=== PATIENT | female | born 1935 | race Caucasian/White ===

== ENCOUNTER 2017-02-09 15:52 | Inpatient (IN) | payer OTHER, MEDICARE ==
[~2017-02-09] VITALS: Ht 152.4 cm; Wt 79.2 kg
[~2017-02-09 15:52] MED LIST: ASPI325T PO; BUTA1CAP PO; CARD120T4 PO; LEVO.1 PO; MECL25 PO; ZOCO40TA PO
[2017-02-09 15:55] VITALS: BP 157/74; PULSE 95; RESP 16; TEMP 98.2; O2SAT 99
[2017-02-09 16:17] VITALS: BP 155/91; PULSE 85; RESP 18; O2SAT 99
[2017-02-09 16:29] VITALS: RESP 16; O2SAT 96
[2017-02-09] MEDS ORDERED: SODIUM CHLORIDE 0.9% FLUSH 10 ML FLUSH IVF PRN (16:30)
--- NOTE | 2017-02-09 16:30 | PD ---
HPI Chief Complaint: Neuro Symptoms/ Deficits Time Seen by Provider: 16:27 Travel History International Travel<30 days: No Contact w/Intl Traveler<30days: No Traveled to known affect area: No History of Present Illness HPI Patient comes in for evaluation of left upper and left lower extremity weakness that began around 8:00 this morning. Patient states she noticed it on her way to the airport in [place] has not seen improvement. Patient's daughter was with her does not live with her and has not noticed anything else abnormal. Patient having difficulty walking with her left leg and grasping with her left hand. Daughter thought this could be secondary to patient needing something to eat so tried to get her to eat something prior to coming to the emergency department with no improvement of symptoms. Patient denies any chest pain, shortness of breath, headache, back pain, change in vision, dizziness, lightheadedness, abdominal pain, loss change in bowel or bladder, or recent trauma. Patient states 2 days ago she did trip secondary to her leg giving out on her but did not actually fall states that she was caught prior to landing. Patient denies any history of CVA or TIA. Patient reports the patient was supposed to be getting a MRI of her back in [place]. Daughter states she is trying to get in contact with her sister in [place] to get more information the patient's current issue. PFSH Past Medical History Hx Anticoagulant Therapy: Yes (ASA 325 MG) Arthritis: Yes Asthma: No Atrial Fibrillation: Yes Autoimmune Disease: No Blood Disorders: No Anxiety: No Depression: Yes Heart Rhythm Problems: Yes Cancer: No Cardiac Catheterization: No Cardiovascular Problems: Yes (A-FIB, HTN, HYPERCHOLESTEROLEMIA) High Cholesterol: Yes Chemotherapy: No Chest Pain: Yes Congestive Heart Failure: No COPD: No Cerebrovascular Accident: No Diabetes: No Diminished Hearing: Yes Endocrine: Yes Gastrointestinal Disorders: Yes (GERD) GERD: Yes Glaucoma: No Genitourinary: Yes (HEMATURIA) Headaches: Yes Hepatitis: No Hiatal Hernia: Yes Hypertension: Yes Immune Disorder: No Kidney Stones: No Musculoskeletal: Yes Neurologic: Yes Psychiatric: No Reproductive: No Respiratory: No Immunizations Current: Yes Migraines: No Myocardial Infarction: No Radiation Therapy: No Renal Failure: No Seizures: No Sickle Cell Disease: No Sleep Apnea: No Thyroid Disease: Yes (HYPOTHYROIDISM) Ulcer: No Menopausal: Yes : 5 Para: 5 Past Surgical History Abdominal Surgery: No AICD: No Appendectomy: No Arteriovenous Shunt: No Cardiac Surgery: No Cholecystectomy: No Coronary Artery Bypass Graft: No Ear Surgery: No Endocrine Surgery: No Eye Surgery: Yes (BILATERAL CATARACTS) Genitourinary Surgery: No Gynecologic Surgery: Yes Hysterectomy: Yes Insulin Pump: No Joint Replacement: Yes (LEFT ANKLE FRACTURE WITH REPAIR) Oral Surgery: No Pacemaker: No Thoracic Surgery: No Other Surgery: Yes (STOMACH FLU-HOSPTIALIZED 10/29/08) Family History Family Myocardial Infarction: Yes Social History Alcohol Use: No Tobacco Use: No Substance Use: No Allergies-Medications (Allergen,Severity, Reaction): Coded Allergies: codeine (Unverified Adverse Reaction, Intermediate, Nausea/Vomiting, ) Reported Meds & Prescriptions Reported Meds & Active Scripts Active Reported Atorvastatin (Atorvastatin Calcium) 20 Mg Tab 20 Mg PO HS Losartan-Hydrochlorothiazide 50-12.5 Mg Tab 1 Tab PO DAILY Baclofen 10 Mg Tab 10 Mg PO HS PRN Digoxin 0.125 Mg/2.5 Ml Solution Aspirin 325 Mg Tab 325 Mg PO DAILY Levothyroxine (Levothyroxine Sodium) 100 Mcg Tab 100 Mcg PO DAILY Escitalopram (Escitalopram Oxalate) 10 Mg Tab 10 Mg PO DAILY Celecoxib 100 Mg Cap 100 Mg PO BID Omeprazole 20 Mg Tab 20 Mg PO DAILY Bee 3 1000 mg (Bee-3 Fatty Acids) 1 Cap Cap 1,000 Mg PO DAILY Potassium Chloride ER (Potassium Chloride) 20 Meq Tab 100 Meq PO DAILY Review of Systems Except as stated in HPI: all other systems reviewed are Neg Physical Exam Narrative GENERAL: Well-developed, overly nourished, in no acute distress, and non-ill appearing. SKIN: Focused skin assessment warm and dry. HEAD: Atraumatic. Normocephalic. EYES: Pupils equal and round. EOMI. No scleral icterus. No injection or drainage. ENT: No nasal bleeding or discharge. Mucous membranes pink and moist. NECK: Trachea midline. No JVD. Supple. No nuclear rigidity. CARDIOVASCULAR: Regular rate and rhythm. No murmur appreciated. RESPIRATORY: No accessory muscle use. No respiratory distress. Clear to auscultation. Breath sounds equal bilaterally. GASTROINTESTINAL: Abdomen soft, non-tender, nondistended, and no guarding. Hepatic and splenic margins not palpable. Normal bowel sounds 4. No pulsatile mass. MUSCULOSKELETAL: No obvious deformities. No clubbing. No cyanosis. No edema. Decreased range of motion left upper and left lower extremities. NEUROLOGICAL: Awake and alert. No obvious cranial nerve deficits. Motor grossly within normal limits. Normal speech. No facial drooping. No deviation of the tongue. Equal rise and fall of the eyebrows. Patient has decreased strength left lower and upper extremities with electrician front, pronator drift, lifting left leg, and left and left arm. Patient reports sensation is intact equally bilateral upper and lower extremities to light touch. PSYCHIATRIC: Appropriate mood and affect; insight and judgment normal. Data Data Last Documented VS Vital Signs Date Time Temp Pulse Resp B/P Pulse Ox O2 Delivery O2 Flow Rate FiO2 02/09/17 16:29 16 96 Room Air 02/09/17 16:17 85 155/91 02/09/17 15:55 98.2 Orders Electrocardiogram (02/09/17 16:24) Prothrombin Time / Inr (Pt) (02/09/17 16:24) Act Partial Throm Time (Ptt) (02/09/17 16:24) Complete Blood Count With Diff (02/09/17 16:24) Basic Metabolic Panel (Bmp) (02/09/17 16:24) Urinalysis - C+S If Indicated (02/09/17 16:24) Ct Brain W/O Iv Contrast(Rout) (02/09/17 16:24) Ecg Monitoring (02/09/17 16:24) Iv Access Insert/Monitor (02/09/17 16:24) Oximetry (02/09/17 16:24) Sodium Chloride 0.9% Flush (Ns Flush) (02/09/17 16:30) Admit Order (Ed Use Only) (02/09/17 18:39) Labs Laboratory Tests Test 02/09/17 02/09/17 02/09/17 16:24 16:30 17:43 Prothrombin Time 10.7 SEC Prothromb Time International 1.0 RATIO Ratio Activated Partial 24.3 SEC Thromboplast Time White Blood Count 13.0 TH/MM3 Red Blood Count 4.00 MIL/MM3 Hemoglobin 11.9 GM/DL Hematocrit 37.1 % Mean Corpuscular Volume 92.8 FL Mean Corpuscular Hemoglobin 29.9 PG Mean Corpuscular Hemoglobin 32.2 % Concent Red Cell Distribution Width 15.3 % Platelet Count 330 TH/MM3 Mean Platelet Volume 8.6 FL Neutrophils (%) (Auto) 73.5 % Lymphocytes (%) (Auto) 18.6 % Monocytes (%) (Auto) 5.7 % Eosinophils (%) (Auto) 1.8 % Basophils (%) (Auto) 0.4 % Neutrophils # (Auto) 9.6 TH/MM3 Lymphocytes # (Auto) 2.4 TH/MM3 Monocytes # (Auto) 0.7 TH/MM3 Eosinophils # (Auto) 0.2 TH/MM3 Basophils # (Auto) 0.1 TH/MM3 CBC Comment DIFF FINAL Differential Comment Sodium Level 139 MEQ/L Potassium Level 3.6 MEQ/L Chloride Level 102 MEQ/L Carbon Dioxide Level 24.2 MEQ/L Anion Gap 13 MEQ/L Blood Urea Nitrogen 25 MG/DL Creatinine 1.35 MG/DL Estimat Glomerular Filtration 37 ML/MIN Rate Random Glucose 164 MG/DL Calcium Level 8.1 MG/DL Urine Color YELLOW Urine Turbidity HAZY Urine pH 5.0 Urine Specific [place] 1.030 Urine Protein TRACE mg/dL Urine Glucose (UA) NEG mg/dL Urine Ketones NEG mg/dL Urine Occult Blood NEG Urine Nitrite NEG Urine Bilirubin NEG Urine Urobilinogen 2.0 MG/DL Urine Leukocyte Esterase LARGE Urine WBC 5 /hpf Urine Squamous Epithelial 8 /hpf Cells Urine Transitional Epithelial <1 /hpf Cells Urine Hyaline Casts 3 /lpf Urine Mucus FEW /lpf Microscopic Urinalysis Comment CATH-CULT NOT IND MDM Medical Decision Making Medical Screen Exam Complete: Yes Emergency Medical Condition: Yes Interpretation(s) CT the head read by the radiologist shows: Stable appearance with small vessel ischemic change. Differential Diagnosis CVA, TIA, tumor, electrolyte abnormality, intracranial hemorrhage, other Narrative Course Patient was seen and examined. IV established. Patient placed on continuous cardiac monitoring. Initial lab and radiological studies were ordered. Discussed patient with Dr. Yan, who saw and evaluated patient is gardner with plan of care and disposition. Patient took full dose aspirin this morning and reports is unable take Coumadin secondary to bleeding. Discussed all findings and plan of care with patient and her daughter. Patient is agreeable for admission. All questions were answered. Discussed patient with hospitalist is agreeable to admit the patient. Physician Communication Physician Communication [phone] Kenney, who is agreeable to admit the patient. Diagnosis Primary Impression: CVA (cerebral vascular accident) Qualified Code: I63.9 - Cerebrovascular accident (CVA), unspecified mechanism Admitting Information Admitting Physician Requests: Admit Condition: Stable Flip Cristobal Feb 09, 2017 16:30
[2017-02-09 16:59] LABS: AUTOMATED NEUTROPHIL # 9.6 TH/MM3 (1.8-7.7); BASOPHIL # 0.1 TH/MM3 (0-0.2); BASOPHIL % 0.4 % (0.0-2.0); EOSINOPHIL # 0.2 TH/MM3 (0-0.4); EOSINOPHIL % 1.8 % (0.0-4.0); HEMATOCRIT 37.1 % (35.0-46.0); HEMO FLAGS DIFF FINAL; LYMPH % 18.6 % (9.0-44.0); LYMPHOCYTE # 2.4 TH/MM3 (1.0-4.8); MEAN CELL VOLUME 92.8 FL (80.0-100.0); MEAN CORPUSCULAR HEMOGLOBIN 29.9 PG (27.0-34.0); MEAN CORPUSCULAR HGB CONC 32.2 % (32.0-36.0); MONO % 5.7 % (0.0-8.0); NEUT % 73.5 % (16.0-70.0); PLATELET COUNT 330 TH/MM3 (150-450); RED CELL DISTRIBUTION WIDTH 15.3 % (11.6-17.2)
[2017-02-09 17:02] LABS: APTT (PATIENT) 24.3 SEC (24.3-30.1); PROTHROMBIN TIME - PATIENT 10.7 SEC (9.8-11.6)
--- NOTE | 2017-02-09 17:09 | RADRPT ---
EXAM DATE/TIME: 02/09/2017 16:50 [facility] COMPARISON: CT BRAIN W/O CONTRAST, January 26, 2015, 8:36. INDICATIONS : Left arm and left leg numbness today. RADIATION DOSE: 56.77 CTDIvol (mGy) MEDICAL HISTORY : Hypertension. Cardiovascular disease AFIB SURGICAL HISTORY : Hysterectomy. ENCOUNTER: Initial ACUITY: 1 day PAIN SCALE: 3/10 LOCATION: Bilateral cranial TECHNIQUE: Multiple contiguous axial images were obtained of the head. Using automated exposure control and adj ustment of the mA and/or kV according to patient size, radiation dose was kept as low as reasonably a chievable to obtain optimal diagnostic quality images. DICOM format image data is available electro nically for review and comparison. FINDINGS: CEREBRUM: The ventricles are normal for age. No evidence of midline shift, mass lesion, hemorrhage or acute in farction. Stable chronic small vessel ischemic changes are noted with decreased attenuation in the wh ite matter. No extra-axial fluid collections are seen. POSTERIOR FOSSA: The cerebellum and brainstem are intact. The 4th ventricle is midline. The cerebellopontine angle i s unremarkable. EXTRACRANIAL: The visualized portion of the orbits is intact. SKULL: The calvaria is intact. No evidence of skull fracture. CONCLUSION: Stable appearance with small vessel ischemic change. Raghavendra Joseph MD on February 09, 2017 at 17:06 Board Certified Radiologist. This report was verified electronically.
--- NOTE | 2017-02-09 17:15 | PD ---
Data Data Last Documented VS Vital Signs Date Time Temp Pulse Resp B/P Pulse Ox O2 Delivery O2 Flow Rate FiO2 02/09/17 16:29 16 96 Room Air 02/09/17 16:17 85 155/91 02/09/17 15:55 98.2 Orders Electrocardiogram (02/09/17 16:24) Prothrombin Time / Inr (Pt) (02/09/17 16:24) Act Partial Throm Time (Ptt) (02/09/17 16:24) Complete Blood Count With Diff (02/09/17 16:24) Basic Metabolic Panel (Bmp) (02/09/17 16:24) Urinalysis - C+S If Indicated (02/09/17 16:24) Ct Brain W/O Iv Contrast(Rout) (02/09/17 16:24) Ecg Monitoring (02/09/17 16:24) Iv Access Insert/Monitor (02/09/17 16:24) Oximetry (02/09/17 16:24) Sodium Chloride 0.9% Flush (Ns Flush) (02/09/17 16:30) Admit Order (Ed Use Only) (02/09/17 18:39) Labs Laboratory Tests Test 02/09/17 02/09/17 02/09/17 16:24 16:30 17:43 Prothrombin Time 10.7 SEC Prothromb Time International 1.0 RATIO Ratio Activated Partial 24.3 SEC Thromboplast Time White Blood Count 13.0 TH/MM3 Red Blood Count 4.00 MIL/MM3 Hemoglobin 11.9 GM/DL Hematocrit 37.1 % Mean Corpuscular Volume 92.8 FL Mean Corpuscular Hemoglobin 29.9 PG Mean Corpuscular Hemoglobin 32.2 % Concent Red Cell Distribution Width 15.3 % Platelet Count 330 TH/MM3 Mean Platelet Volume 8.6 FL Neutrophils (%) (Auto) 73.5 % Lymphocytes (%) (Auto) 18.6 % Monocytes (%) (Auto) 5.7 % Eosinophils (%) (Auto) 1.8 % Basophils (%) (Auto) 0.4 % Neutrophils # (Auto) 9.6 TH/MM3 Lymphocytes # (Auto) 2.4 TH/MM3 Monocytes # (Auto) 0.7 TH/MM3 Eosinophils # (Auto) 0.2 TH/MM3 Basophils # (Auto) 0.1 TH/MM3 CBC Comment DIFF FINAL Differential Comment Sodium Level 139 MEQ/L Potassium Level 3.6 MEQ/L Chloride Level 102 MEQ/L Carbon Dioxide Level 24.2 MEQ/L Anion Gap 13 MEQ/L Blood Urea Nitrogen 25 MG/DL Creatinine 1.35 MG/DL Estimat Glomerular Filtration 37 ML/MIN Rate Random Glucose 164 MG/DL Hemoglobin A1c 6.5 % Calcium Level 8.1 MG/DL Digoxin Level 0.5 NG/ML Urine Color YELLOW Urine Turbidity HAZY Urine pH 5.0 Urine Specific [place] 1.030 Urine Protein TRACE mg/dL Urine Glucose (UA) NEG mg/dL Urine Ketones NEG mg/dL Urine Occult Blood NEG Urine Nitrite NEG Urine Bilirubin NEG Urine Urobilinogen 2.0 MG/DL Urine Leukocyte Esterase LARGE Urine WBC 5 /hpf Urine Squamous Epithelial 8 /hpf Cells Urine Transitional Epithelial <1 /hpf Cells Urine Hyaline Casts 3 /lpf Urine Mucus FEW /lpf Microscopic Urinalysis Comment CATH-CULT NOT IND MDM Supervised Visit with LORENA: Yes Narrative Course I, Dr. Yan, have reviewed the advance practice practitioner's documentation and am in agreement, met with the patient face to face, made the diagnosis, and the medical decision making was done by me. *My assessment and Findings: This is an 81-year-old female presents with left upper extremity weakness and inability to chicken picker a cup since approximately 8:00 this morning. On my physical exam the patient has significant weakness of the left upper extremity. Left lower extremity has no drift. She has significant pronator drift of left upper extremity. She has no pain in the left upper extremity and no neck pain. Symptoms are highly consistent with a subacute stroke however the patient does not meet stroke alert criteria she is out of the window for intervention. CAT scan of the head negative, discussed my impression with the patient and recommended admission to the hospital and she and her daughter are agreeable. Diagnosis Primary Impression: CVA (cerebral vascular accident) Qualified Code: I63.9 - Cerebrovascular accident (CVA), unspecified mechanism Admitting Information Admitting Physician Requests: Admit Condition: Stable Luiz Yan MD Feb 09, 2017 17:15
[2017-02-09 17:47] LABS: BICARBONATE 24.2 MEQ/L (21.0-32.0); POTASSIUM 3.6 MEQ/L (3.5-5.1)
[2017-02-09 18:27] LABS: BLOOD, URINE NEG (NEG); GLUCOSE,URINE NEG (NEG); HYALINE CAST, URINE 3 /lpf (RARE); KETONE, URINE NEG (NEG); MUCUS URINE FEW /lpf (OCC); NITRITE,URINE NEG (NEG); SQUAMOUS EPITHELIAL CELL URINE 8 /hpf (0-5); TRANSITIONAL EPI CELLS, URINE <1 /hpf; URINE COLOR YELLOW (YELLW/STRAW)
[2017-02-09 18:32] LABS: COMMENT (UR) CATH-CULT NOT IND; CULTURE IF INDICATED CATH CULTURE NOT IND
[2017-02-09] MEDS ORDERED: OMEG100010 PO (18:41)
[2017-02-09] MEDS ORDERED: POTA-163 PO (18:41)
[2017-02-09] MEDS ORDERED: LEVO100T5 PO (18:47)
[2017-02-09] MEDS ORDERED: ESCI10TA PO (18:47)
[2017-02-09] MEDS ORDERED: BACL10TA PO (18:47)
[2017-02-09] MEDS ORDERED: DIGO50SO (18:47)
[2017-02-09] MEDS ORDERED: LOSA50TA2 PO (18:47)
[2017-02-09] MEDS ORDERED: OMEP20TA PO (18:47)
[2017-02-09] MEDS ORDERED: CELE1CAP6 PO (18:47)
[2017-02-09] MEDS ORDERED: ATOR20TA15 PO (18:47)
[2017-02-09] MEDS ORDERED: ASPI325T PO (18:47)
[2017-02-09] MEDS ORDERED: SODIUM CHLOR 0.9% 1000 ML INJ 1,000 ML IV SCH (18:55)
--- NOTE | 2017-02-09 18:57 | HHI.HP ---
HPI Service [facility] Primary Care Physician No Primary Care Physician VISITING US FROM [place] Admission Diagnosis Diagnoses: (1) CVA (cerebral vascular accident) Diagnosis: Principal (2) Atypical chest pain Diagnosis: Secondary (3) Atrial fibrillation Diagnosis: Principal (4) Hypertension (5) GERD (gastroesophageal reflux disease) (6) UTI (urinary tract infection) (7) Hyperlipidemia Chief Complaint: Left sided weakness Travel History International Travel<30 Days: No Contact w/Intl Traveler <30 Da: No Traveled to Known Affected Are: No History of Present Illness Ms. Parkinson 81-year-old [place] patient with a known medical history of dyslipidemia, hypertension, and atrial fibrillation who presented to the ED with left sided weakness. Patient seen and examined in ED with daughter at bedside. Per daughter, patient was in [place] this am before boarding the plane became very weak, unable to walk and complaint of left upper and lower extremity weakness. She was placed in a wheelchair and boarded the plane despite these symptoms. Upon arriving in [facility] her daughter recognized these symptoms and immediately drove her here to the ED. Precipitating symptoms related to this event this morning includes general left lower extremity weakness 2 days ago which eventually resolved and dizziness upon awakening this morning. Denies any previous similar symptoms. Denies any history of TIA/CVA. Denies any associated symptoms including fever, chills, cough, dysphagia, lightheadedness, headache, nausea, slurred speech, confusion, diplopia or any vision changes. Patient did state that she took all of her medications this morning including her Aspirin 325 mg. It is important to note patient has been treated for UTI by her PCP within the last month and PO antibiotics. States she is still having some dysuria. Review of Systems Constitutional: COMPLAINS OF: Fatigue, DENIES: Fever, Chills Endocrine: DENIES: Polydipsia, Polyuria, Polyphagia Eyes: DENIES: Eye pain, Vision loss, Double Vision Ears, nose, mouth, throat: DENIES: Throat pain Respiratory: DENIES: Cough, Shortness of breath Cardiovascular: DENIES: Dyspnea on Exertion, Lower Extremity Edema, Orthopnea Gastrointestinal: DENIES: Black stools, Diarrhea, Nausea, Vomiting Genitourinary: DENIES: Urinary frequency Musculoskeletal: DENIES: Muscle aches Neurologic: COMPLAINS OF: Abnormal gait, Localized weakness (left upper and lower extremity weakness), Poor Balance Psychiatric: DENIES: Confusion, Agitation Except as stated in HPI: all other systems reviewed are Neg Past Family Social History Past Medical History Hypertension Hyperlipidemia Chronic atrial fibrillation GERD Hypothyroidism Past Surgical History Bilateral cataracts Total hysterectomy Left ankle fracture repair Reported Medications Reported Meds & Active Scripts Active Fioricet 50-300-40 mg (CAP) (Byznhdrech-Qpcojcwhirmyc-Uurzb) 1 Cap 1 Cap PO Q6 PRN Reported [place] 3 1000 mg ([place]-3 Fatty Acids) 1 Cap Cap 1,000 Mg PO DAILY Potassium Chloride ER (Potassium Chloride) 20 Meq Tab 100 Meq PO DAILY Aspirin 325 Mg Tab (Aspirin) 325 Mg Tab 325 Mg PO DAILY Cardizem 120 mg tab (Diltiazem HCl) 120 Mg Tab 120 Mg PO DAILY Zocor 40 mg (Simvastatin) 40 Mg Tab 40 Mg PO HS Antivert (Meclizine HCl) 25 Mg Tab 25 Mg PO QIDPRN Synthroid 100 mcg (Levothyroxine Sodium) 100 Mcg Tab 100 Mcg PO DAILY Allergies: Coded Allergies: codeine (Unverified Adverse Reaction, Intermediate, Nausea/Vomiting, ) Active Ordered Medications Current Medications Medications (Trade) Dose Ordered Sig/Sarah Route Start Time Stop Time Status Last Admin (NS Flush) 2 ml UNSCH PRN IVF 02/09/17 16:30 Family History Denies any significant family medical history. Social History Denies any tobacco use. Denies any alcohol use. Denies any illicit drug use. Physical Exam Vital Signs Vital Signs Date Time Temp Pulse Resp B/P Pulse Ox O2 Delivery O2 Flow Rate FiO2 02/09/17 16:29 16 96 Room Air 02/09/17 16:17 85 18 155/91 99 Room Air 02/09/17 15:55 98.2 95 16 157/74 99 Physical Exam GENERAL: Well-nourished, well-developed female patient, in no apparent distress. SKIN: No rashes, ecchymoses or lesions. Warm and dry. HEAD: Atraumatic. Normocephalic. Pupils equal round and reactive. Extraocular motions intact. No scleral icterus. No injection or drainage. Nose without bleeding. Uvula midline. Airway patent. Tongue is abnormal on the left side chronically for 50+ years she states NECK: Trachea midline. No JVD. Supple. CARDIOVASCULAR: Irregularly irregular rhythm. S1-S2 no S3 or S4 no heave or thrill or rub or gallop RESPIRATORY: Clear to auscultation. Breath sounds equal bilaterally. No wheezes , rales, or rhonchi. GASTROINTESTINAL: Abdomen soft, non-tender, nondistended. No guarding. MUSCULOSKELETAL: Extremities without clubbing, cyanosis, or edema. No joint tenderness, effusion, or edema noted. EXTREMITIES: Left upper and lower extremity weakness noted, left upper arm 3/5, left lower leg 4/5. Right side muscle strength is 5 out of 5 in upper extremity and lower extremity NEUROLOGICAL: Awake and alert. Cranial nerves II through XII intact. Motor and sensory grossly within normal limits Normal speech. Insight and judgment is poor mood and behavior is somewhat appropriate Laboratory Laboratory Tests Test 02/09/17 02/09/17 02/09/17 16:24 16:30 17:43 Prothrombin Time 10.7 Prothromb Time International 1.0 Ratio Activated Partial 24.3 Thromboplast Time White Blood Count 13.0 Red Blood Count 4.00 Hemoglobin 11.9 Hematocrit 37.1 Mean Corpuscular Volume 92.8 Mean Corpuscular Hemoglobin 29.9 Mean Corpuscular Hemoglobin 32.2 Concent Red Cell Distribution Width 15.3 Platelet Count 330 Mean Platelet Volume 8.6 Neutrophils (%) (Auto) 73.5 Lymphocytes (%) (Auto) 18.6 Monocytes (%) (Auto) 5.7 Eosinophils (%) (Auto) 1.8 Basophils (%) (Auto) 0.4 Neutrophils # (Auto) 9.6 Lymphocytes # (Auto) 2.4 Monocytes # (Auto) 0.7 Eosinophils # (Auto) 0.2 Basophils # (Auto) 0.1 CBC Comment DIFF FINAL Differential Comment Sodium Level 139 Potassium Level 3.6 Chloride Level 102 Carbon Dioxide Level 24.2 Anion Gap 13 Blood Urea Nitrogen 25 Creatinine 1.35 Estimat Glomerular Filtration 37 Rate Random Glucose 164 Calcium Level 8.1 Urine Color YELLOW Urine Turbidity HAZY Urine pH 5.0 Urine Specific [place] 1.030 Urine Protein TRACE Urine Glucose (UA) NEG Urine Ketones NEG Urine Occult Blood NEG Urine Nitrite NEG Urine Bilirubin NEG Urine Urobilinogen 2.0 Urine Leukocyte Esterase LARGE Urine WBC 5 Urine Squamous Epithelial 8 Cells Urine Transitional Epithelial <1 Cells Urine Hyaline Casts 3 Urine Mucus FEW Microscopic Urinalysis Comment CATH-CULT NOT IND Result Diagram: 02/09/17 1630 02/09/17 1630 Imaging Last Impressions Head CT 02/09/17 1624 Signed Impressions: Service Date/Time: Thursday, February 09, 2017 16:50 - CONCLUSION: Stable appearance with small vessel ischemic change. Raghavendra Joseph MD Assessment and Plan Problem List: (1) Hypertension ICD Code: I10 Status: Acute (2) GERD (gastroesophageal reflux disease) ICD Code: K21.9 Status: Acute (3) Hyperlipidemia ICD Code: E78.5 Status: Acute (4) UTI (urinary tract infection) ICD Code: N39.0 Status: Acute (5) Atrial fibrillation ICD Code: I48.91 Status: Acute (6) CVA (cerebral vascular accident) ICD Code: I63.9 Status: Acute (7) Atypical chest pain ICD Code: R07.89 Status: Acute Assessment and Plan Ms. Parkinson 81-year-old male patient with a known medical history of dyslipidemia, hypertension, and atrial fibrillation who presented to the ED with left sided weakness. Precipitating symptoms related to this event this morning includes general left lower extremity weakness 2 days ago which eventually resolved and dizziness upon awakening this morning. Denies any previous similar symptoms. Denies any history of TIA/CVA. Patient is independent , lives alone and able to perform all ADLs and IADLs. On presentation WBC 13, afebrile, Head CT performed, EKG showing controlled atrial fibrillation, UA positive for leukocyte esterase. Left upper and lower extremity sided weakness suspect secondary to TIA vs CVA - Head CT done showing stable appearance with small vessel ischemic changes. - Neurology consulted, appreciate input and further recommendations. - Will order MRI/MRA of brain. US of bilateral carotids ordered. Follow. - Continue neuro checks. Continue NIH scale for now. ECHO Acute on chronic kidney injury with stage 3 kidney disease - Creatinine upon presentation 1.35. Unknown baseline. - Slowly hydrate patient, NS at 42 ml/hr. - Monitor intake and output closely. Leukocytosis, mild suspect secondary to stress reaction: WBC 13.0. Afebrile. Monitor fever. Repeat CBC in am, follow. Chronic atrial fibrillation: Controlled rate. Continue home Cardizem. Continue cardiac telemetry. Monitor closely. Continue home aspirin. Hypertension, chronic: Relatively controlled. Will allow permissive hypertension for now. Monitor closely. Dyslipidemia: Continue home atorvastatin. Hypothyroidism: Continue home levothyroxine. DVT prophylaxis: SCDs/TEDs/Aspirin for now. DYSURIA RULE OUT UTI The exam, history, and the medical decision-making described in the above note were completed with the assistance of the mid-level provider. I reviewed and agree with the findings presented. I attest that I had a [id number] encounter with the patient on the same day, and personally performed and documented my assessment and findings in the medical record. Code Status Full code Discussed Condition With Discussed with patient and RN, family, KAMI and emergency room physician Physician Certification 2 Midnight Certification Type: Admission for Inpatient Services Order for Inpatient Services The services are ordered in accordance with Medicare regulations or non- Medicare payer requirements, as applicable. In the case of services not specified as inpatient-only, they are appropriately provided as inpatient services in accordance with the 2-midnight benchmark. Estimated LOS (days): 3 3 days is the estimated time the patient will need to remain in the hospital, assuming treatment plan goals are met and no additional complications. Post-Hospital Plan: Not yet determined Problem Qualifiers (1) CVA (cerebral vascular accident): Qualified Code: I63.9 - Cerebrovascular accident (CVA), unspecified mechanism Heidi Bloom Feb 09, 2017 18:57 Dat Kenney DO Feb 09, 2017 19:19
[2017-02-09] MEDS ORDERED: SODIUM CHLORIDE 0.9% FLUSH 5 ML FLUSH IV FLUSH PRN (19:00)
[2017-02-09] MEDS ORDERED: MAGNESIUM HYDROXIDE SUSP 30 ML CUP PO PRN (19:00)
[2017-02-09] MEDS ORDERED: DEXTROSE 50% IN WATER 50 ML VIAL(D50) IV PUSH PRN (19:00)
[2017-02-09] MEDS ORDERED: ONDANSETRON HCL 4 MG/2 ML VIAL IVP PRN (19:00)
[2017-02-09] MEDS ORDERED: ACETAMINOPHEN 325 MG TAB PO PRN (19:00)
[2017-02-09] MEDS ORDERED: GLUCAGON 1 MG/ML VIAL OTHER PRN (19:00)
[2017-02-09] MEDS: cefTRIAXone INJ 1,000 MG in SODIUM CHLORIDE 0.9% INJ 100 ML IV SCH (19:55)
[2017-02-09] MEDS: SODIUM CHLORIDE 0.9% FLUSH 5 ML FLUSH IV FLUSH SCH (19:56)
[2017-02-09 19:58] VITALS: BP 128/74; PULSE 77; RESP 16; O2SAT 96
[2017-02-09] MEDS ORDERED: LORazepam 2 MG/ML VIAL IV PUSH ONE (20:00)
[2017-02-09] MEDS: DOCUSATE SODIUM 50 MG/SENNA 8.6 MG TAB PO SCH (21:00)
[2017-02-09] MEDS: INSULIN ASPART SUPPLEMENTAL SCALE SQ SCH (21:00)
[2017-02-09] MEDS: ATORVASTATIN 20 MG TAB PO SCH (21:00)
[2017-02-09 21:10] VITALS: PULSE 65
[2017-02-09 21:16] LABS: HEMOGLOBIN A1a 1.4 %; HEMOGLOBIN A1b 2.3 %; HEMOGLOBIN Ao 82.2 %; HEMOGLOBIN LA1C 2.5 %; HEMOGLOBIN P3 4.4 %
[2017-02-09 21:30] VITALS: BP 126/70; PULSE 79; RESP 18; TEMP 97.9; O2SAT 94
--- NOTE | 2017-02-09 22:32 | RADRPT ---
EXAM DATE/TIME: 02/09/2017 20:22 [facility] COMPARISON: No previous studies available for comparison. INDICATIONS : Left upper extremity numbness. MEDICAL HISTORY : Hypertension. SURGICAL HISTORY : Hysterectomy. ENCOUNTER: Initial ACUITY: 1 day PAIN SCORE: 0/10 LOCATION: cranial Please note a normal MRA of the brain does not entirely exclude the possibility of a small aneurysm, nor the possibility of distal intracranial vessel disease. TECHNIQUE: 3D time of flight MRA was performed. Source images, multiplanar STS MIP, and 3D volume MIP reconstru ctions were reviewed. FINDINGS: There is excellent visualization of the major intracranial arteries out to the second-order branch ve ssels. There is no evidence for aneurysm, vessel truncation or stenosis, and no evidence for vascula r malformation. CONCLUSION: Intracranial arteries are within normal limits. Isidro Robison MD on February 09, 2017 at 22:29 Board Certified Radiologist. This report was verified electronically.
--- NOTE | 2017-02-09 22:34 | RADRPT ---
EXAM DATE/TIME: 02/09/2017 20:22 [facility] COMPARISON: No previous studies available for comparison. INDICATIONS : Left upper extremity numbness. MEDICAL HISTORY : Hypertension. SURGICAL HISTORY : Hysterectomy. ENCOUNTER: Initial ACUITY: 1 day PAIN SCORE: 0/10 LOCATION: cranial TECHNIQUE: Multiplanar, multisequence MRI of the brain was performed without contrast. FINDINGS: CEREBRUM: The ventricles are normal for age. No evidence of midline shift, mass lesion, hemorrhage or acute in farction. No extraaxial fluid collections are seen. The pituitary gland and suprasellar cistern are normal in configuration. WHITE MATTER: Mild to moderate severity chronic flair signal abnormality seen in the periventricular white matter o f both cerebral hemispheres. POSTERIOR FOSSA: The cerebellum and brainstem are intact. The 4th ventricle is midline. The cerebellopontine angle is unremarkable. The cerebellar tonsils are normal in position. DIFFUSION IMAGIN x 10 mm focus of faintly restricted diffusion seen in the periventricular white matter posteriorly of the right frontal lobe. EXTRACRANIAL: The visualized portions of the orbits and paranasal sinuses are unremarkable. CONCLUSION: 1. Subcentimeter acute or subacute periventricular white matter infarct posteriorly in the right fron uche lobe. 2. Mild to moderate chronic white matter ischemic changes. Isidro Robison MD on February 09, 2017 at 22:31 Board Certified Radiologist. This report was verified electronically.
--- NOTE | 2017-02-09 22:38 | RADRPT ---
EXAM DATE/TIME: 02/09/2017 19:29 [facility] COMPARISON: No previous studies available for comparison. INDICATIONS : Cerebrovascular accident. MEDICAL HISTORY : Hypertension. Hypercholesterolemia. Gastroesophageal reflux disease. Hypothyroidism. Atrial fibrilla tion. Hernia, hiatal. Arthritis. SURGICAL HISTORY : Hysterectomy. Bilateral cataract surgery. Left ankle fracture with repair. ENCOUNTER: Initial ACUITY: 1 day PAIN SCORE: 0/10 LOCATION: Bilateral neck PEAK SYSTOLIC VELOCITIES (cm/sec): ICA/CCA RATIO: Right: 1.9 Left: 0.9 ICA: Right: 95.1 Left: 86.7 CCA: Right: 49.1 Left: 96.3 ECA: Right: 72.7 Left: 90.6 VERTEBRAL: Right: 39.5 antegrade Left: 61.0 retrograde Elevated flow velocities and ICA/CCA ratios have been found to correlate with increased degrees of vessel stenosis, calculated as percentage of diameter relative to a normal segment of distal ICA/CCA FINDINGS: RIGHT CAROTID: No significant stenosis is visualized. The waveforms are within normal limits. CCA and ICA are tortu ous. LEFT CAROTID: No significant stenosis is visualized. The waveforms are within normal limits. CCA and ICA are tortu ous. VERTEBRAL ARTERIES: Antegrade flow is seen in both vertebral arteries. MISCELLANEOUS: None. CONCLUSION: Tortuous carotid systems bilaterally. No significant plaque or narrowing. Isidro Robison MD on February 09, 2017 at 22:35 Board Certified Radiologist. This report was verified electronically.
[2017-02-10] VITALS (8 sets, daily range): BP systolic 114–135; BP diastolic 59–71; PULSE 61–69; RESP 16–19; TEMP 97.3–98.9; O2SAT 94–100
[2017-02-10] MEDS: LEVOTHYROXINE SODIUM 100 MCG TAB PO SCH (06:00)
[2017-02-10] MEDS: INSULIN ASPART SUPPLEMENTAL SCALE SQ SCH ×4 (06:25→20:51)
[2017-02-10] MEDS ORDERED: ASPIRIN 325 MG TAB PO SCH (09:00)
[2017-02-10] MEDS: SODIUM CHLORIDE 0.9% FLUSH 5 ML FLUSH IV FLUSH SCH ×2 (09:00→20:51)
--- NOTE | 2017-02-10 09:29 | MB ---
cc: CHAI LOWE DATE OF CONSULTATION: 02/10/2017 REASON FOR CONSULTATION: A 81 right-handed woman, hypertension, hypercholesterolemia, atrial fibrillation on 325 aspirin a day, hypothyroidism. She never had a stroke before. She was on Coumadin in the past evidently had some hematuria and was given some transfusions. Although no record in [facility]. I note she was on Coumadin in 2008 but we do not have a record in this hospital about any bleeding, She says she had hematuria and needed some blood and they looked in her bladder and they did not find anything. She thought it was at this hospital but there is no records here. Nevertheless she was getting on a plane about 10:00 a.m. yesterday morning and [facility] then [facility] here and came in around noon and had some left arm weakness and daughter did not notice until after lunch although weakness and left arm started on plane but the patient did not tell anybody. Then she subsequently came into the hospital found to be in atrial fibrillation, which she has known. It was noted in the emergency room that started at 8 o'clock in the morning by the time she got here was over 6 hours. A carotid ultrasound been negative as was an MRA of the [place], although I would say that the right MCA, distal M3 segment looks a little bit thinner then on the left side. MRI of the brain shows an acute right deep infarct, close to an old small deep infarct also. MEDICATIONS AT HOME 1. Fioricet 2. Fish oil. 3. 325 of Aspirin. 1. Cardizem. 2. Zocor. 3. Antivert. 4. Synthroid. ALLERGIES CODEINE REVIEW OF SYSTEMS She denies any diabetes, coronary artery bypass graft, stent, angioplasty, renal, hepatic, pulmonary disease, lupus, ulcer cancer, seizure prior strokes. SOCIAL HISTORY Not a smoker or drinker, lives by herself. FAMILY HISTORY Negative cancer, seizure. Positive stroke in daughter. PHYSICAL EXAMINATION: on exam EKG showed A fib, afebrile 69, 18, 130/68, there were no carotid bruits. HEART: The heart was regular rhythm, I did not detect a murmur. HEAD, EYES, EARS, NOSE, AND THROAT: Pupils are equal, visual peralta are full. Extraocular muscles intact without nystagmus. Face is symmetric normal station. Tongue was midline. NEUROLOGIC: She had normal strength in right upper and right lower extremity, The left lower extremity is about a 5-/5, left upper extremity she can do 1/5 on wiggling her fingers. She is a 4/5 on the left triceps and biceps. She is a 2/5 in the left deltoid. The speech is fluent. She is not aphasic. DTRs are trace throughout. Toes downgoing bilaterally. LABORATORY DATA CBC; white count 13 otherwise normal. UA shows a large amount of leuko esterase, 5 white cells. Basic metabolic profile creatinine 1.35 otherwise normal. hemoglobin A1c 6.5. Glucose here 164, LDL cholesterol was normal back in 2010. Coags are normal. IMAGING STUDIES As above. IMPRESSION Right sided infarct, small. PLAN: At this point I would start her on IV heparin no bolus ever and start her on Coumadin. She has the atrial fibrillation and a small stroke. I would normally start Eliquis but the fact she had the bleeding before needed a transfusion I would go with Coumadin at this time. She will have to watch her INR and have her family help with it. I talked with the daughter about that. MD BECCA Lynn/jennifer /8:18 AM /9:12 AM
[2017-02-10 09:44] LABS: AUTOMATED NEUTROPHIL # 10.6 TH/MM3 (1.8-7.7); BASOPHIL % 0.3 % (0.0-2.0); EOSINOPHIL # 0.1 TH/MM3 (0-0.4); EOSINOPHIL % 1.1 % (0.0-4.0); HEMATOCRIT 33.5 % (35.0-46.0); HEMO FLAGS DIFF FINAL; LYMPH % 12.9 % (9.0-44.0); LYMPHOCYTE # 1.7 TH/MM3 (1.0-4.8); MEAN CELL VOLUME 92.9 FL (80.0-100.0); MEAN CORPUSCULAR HEMOGLOBIN 29.9 PG (27.0-34.0); MEAN CORPUSCULAR HGB CONC 32.2 % (32.0-36.0); MONO % 5.7 % (0.0-8.0); PLATELET COUNT 288 TH/MM3 (150-450); RED BLOOD COUNT 3.61 MIL/MM3 (4.00-5.30); WHITE BLOOD COUNT 13.3 TH/MM3 (4.0-11.0)
[2017-02-10 09:47] LABS: PROTHROMBIN TIME - PATIENT 11.3 SEC (9.8-11.6)
[2017-02-10 09:55] LABS: APTT (PATIENT) 23.5 SEC (24.3-30.1)
[2017-02-10 10:04] LABS: ALT (GPT) 10 U/L (10-53); ANION GAP 8 MEQ/L (5-15); AST (GOT) 12 U/L (15-37); BICARBONATE 28.3 MEQ/L (21.0-32.0); CHLORIDE 101 MEQ/L (98-107); GLOMERULAR FILTRATION RATE 52 ML/MIN (>89); POTASSIUM 3.6 MEQ/L (3.5-5.1); SODIUM (NA) 137 MEQ/L (136-145)
[2017-02-10 10:05] LABS: BLOOD UREA NITROGEN 23 MG/DL (7-18)
[2017-02-10] MEDS: DOCUSATE SODIUM 50 MG/SENNA 8.6 MG TAB PO SCH ×2 (10:05→20:51)
[2017-02-10] MEDS: PANTOPRAZOLE SOD 20 MG DELAYED RELEASE TAB PO SCH (10:06)
[2017-02-10] MEDS: SODIUM CHLOR 0.9% 1000 ML INJ 1,000 ML IV SCH ×2 (10:07→22:20)
[2017-02-10 10:13] LABS: ALKALINE PHOSPHATASE 101 U/L (45-117); FREE T4 1.27 NG/DL (0.76-1.46); HDL CHOLESTEROL 29.6 MG/DL (40.0-60.0); LDL CHOLESTEROL 76 MG/DL (0-99); TOTAL BILIRUBIN ADULT 0.4 MG/DL (0.2-1.0)
[2017-02-10] MEDS: HEPARIN-D5W 25,000 U/250 ML 250 ML IV SCH (11:30)
--- NOTE | 2017-02-10 12:02 | HHI.PR ---
Subjective Remarks Ms. Parkinson 81-year-old [place] patient with a known medical history of dyslipidemia, hypertension, and atrial fibrillation who presented to the ED with left sided weakness. Patient seen and examined in ED with daughter at bedside. Per daughter, patient was in [place] this am before boarding the plane became very weak, unable to walk and complaint of left upper and lower extremity weakness. She was placed in a wheelchair and boarded the plane despite these symptoms. Upon arriving in [facility] her daughter recognized these symptoms and immediately drove her here to the ED. Precipitating symptoms related to this event this morning includes general left lower extremity weakness 2 days ago which eventually resolved and dizziness upon awakening this morning. Denies any previous similar symptoms. Denies any history of TIA/CVA. Denies any associated symptoms including fever, chills, cough, dysphagia, lightheadedness, headache, nausea, slurred speech, confusion, diplopia or any vision changes. Patient did state that she took all of her medications this morning including her Aspirin 325 mg. It is important to note patient has been treated for UTI by her PCP within the last month and PO antibiotics. States she is still having some dysuria. 8 POSITIVE CVA ON MRI NEUROLOGY WANTS ON COUMADIN- CONTINUE HEPARIN AND COUMADIN FOR GOAL INR OF 2.0 AND 3.0 FOR AFIB DW PT AND FAMILY AND RN QUESTIONS ANSWERED STILL WITH LEFT UPPER EXTREMITY WEAKNESS Objective Vitals Vital Signs Date Time Temp Pulse Resp B/P Pulse Ox O2 Delivery O2 Flow Rate FiO2 02/10/17 08:00 98.8 62 16 135/71 94 02/10/17 06:57 61 02/10/17 04:53 97.8 69 18 130/68 100 02/10/17 01:18 97.8 69 18 118/66 100 02/09/17 21:30 97.9 79 18 126/70 94 02/09/17 21:10 65 02/09/17 19:58 77 16 128/74 96 Room Air 02/09/17 16:29 16 96 Room Air 02/09/17 16:17 85 18 155/91 99 Room Air 02/09/17 15:55 98.2 95 16 157/74 99 I/O 02/09/17 02/09/17 02/09/17 02/10/17 02/10/17 02/10/17 07:00 15:00 23:00 07:00 15:00 23:00 Output Total 1 ml Balance -1 ml Output Urine Total 1 ml # Voids 1 Result Diagram: 02/10/17 0915 02/10/17 0915 Other Results Laboratory Tests Test 02/09/17 02/09/17 02/09/17 02/10/17 16:24 16:30 17:43 09:15 Prothrombin Time 10.7 SEC 11.3 SEC Prothromb Time International 1.0 RATIO 1.0 RATIO Ratio Activated Partial 24.3 SEC 23.5 SEC Thromboplast Time White Blood Count 13.0 TH/MM3 13.3 TH/MM3 Red Blood Count 4.00 MIL/MM3 3.61 MIL/MM3 Hemoglobin 11.9 GM/DL 10.8 GM/DL Hematocrit 37.1 % 33.5 % Mean Corpuscular Volume 92.8 FL 92.9 FL Mean Corpuscular Hemoglobin 29.9 PG 29.9 PG Mean Corpuscular Hemoglobin 32.2 % 32.2 % Concent Red Cell Distribution Width 15.3 % 15.0 % Platelet Count 330 TH/MM3 288 TH/MM3 Mean Platelet Volume 8.6 FL 8.0 FL Neutrophils (%) (Auto) 73.5 % 80.0 % Lymphocytes (%) (Auto) 18.6 % 12.9 % Monocytes (%) (Auto) 5.7 % 5.7 % Eosinophils (%) (Auto) 1.8 % 1.1 % Basophils (%) (Auto) 0.4 % 0.3 % Neutrophils # (Auto) 9.6 TH/MM3 10.6 TH/MM3 Lymphocytes # (Auto) 2.4 TH/MM3 1.7 TH/MM3 Monocytes # (Auto) 0.7 TH/MM3 0.8 TH/MM3 Eosinophils # (Auto) 0.2 TH/MM3 0.1 TH/MM3 Basophils # (Auto) 0.1 TH/MM3 0.0 TH/MM3 CBC Comment DIFF FINAL DIFF FINAL Differential Comment Sodium Level 139 MEQ/L 137 MEQ/L Potassium Level 3.6 MEQ/L 3.6 MEQ/L Chloride Level 102 MEQ/L 101 MEQ/L Carbon Dioxide Level 24.2 MEQ/L 28.3 MEQ/L Anion Gap 13 MEQ/L 8 MEQ/L Blood Urea Nitrogen 25 MG/DL 23 MG/DL Creatinine 1.35 MG/DL 1.01 MG/DL Estimat Glomerular Filtration 37 ML/MIN 52 ML/MIN Rate Random Glucose 164 MG/DL 113 MG/DL Hemoglobin A1c 6.5 % Calcium Level 8.1 MG/DL 7.7 MG/DL Digoxin Level 0.5 NG/ML Urine Color YELLOW Urine Turbidity HAZY Urine pH 5.0 Urine Specific [place] 1.030 Urine Protein TRACE mg/dL Urine Glucose (UA) NEG mg/dL Urine Ketones NEG mg/dL Urine Occult Blood NEG Urine Nitrite NEG Urine Bilirubin NEG Urine Urobilinogen 2.0 MG/DL Urine Leukocyte Esterase LARGE Urine WBC 5 /hpf Urine Squamous Epithelial 8 /hpf Cells Urine Transitional Epithelial <1 /hpf Cells Urine Hyaline Casts 3 /lpf Urine Mucus FEW /lpf Microscopic Urinalysis Comment CATH-CULT NOT IND Phosphorus Level 2.4 MG/DL Magnesium Level 2.0 MG/DL Total Bilirubin 0.4 MG/DL Aspartate Amino Transf 12 U/L (AST/SGOT) Alanine Aminotransferase 10 U/L (ALT/SGPT) Alkaline Phosphatase 101 U/L Total Protein 6.5 GM/DL Albumin 3.1 GM/DL Triglycerides Level 133 MG/DL Cholesterol Level 132 MG/DL LDL Cholesterol 76 MG/DL HDL Cholesterol 29.6 MG/DL Cholesterol/HDL Ratio 4.45 RATIO Free Thyroxine 1.27 NG/DL Thyroid Stimulating Hormone 1.260 uIU/ML 3rd Gen Imaging Last Impressions Head CT 02/09/17 1624 Signed Impressions: Service Date/Time: Thursday, February 09, 2017 16:50 - CONCLUSION: Stable appearance with small vessel ischemic change. Raghavendra Joseph MD Head Magnetic Resonance Angiography 02/09/17 0000 Signed Impressions: Service Date/Time: Thursday, February 09, 2017 20:22 - CONCLUSION: Intracranial arteries are within normal limits. Isidro Robison MD Carotid Artery Ultrasound 02/09/17 0000 Signed Impressions: Service Date/Time: Thursday, February 09, 2017 19:29 - CONCLUSION: Tortuous carotid systems bilaterally. No significant plaque or narrowing. Isidro Robison MD Brain MRI 02/09/17 0000 Signed Impressions: Service Date/Time: Thursday, February 09, 2017 20:22 - CONCLUSION: 1. Subcentimeter acute or subacute periventricular white matter infarct posteriorly in the right frontal lobe. 2. Mild to moderate chronic white matter ischemic changes. Isidro Robison MD Objective Remarks GENERAL: Well-nourished, well-developed female patient, in no apparent distress. SKIN: No rashes, ecchymoses or lesions. Warm and dry. HEAD: Atraumatic. Normocephalic. Pupils equal round and reactive. Extraocular motions intact. No scleral icterus. No injection or drainage. Nose without bleeding. Uvula midline. Airway patent. Tongue is abnormal on the left side chronically for 50+ years she states NECK: Trachea midline. No JVD. Supple. CARDIOVASCULAR: Irregularly irregular rhythm. S1-S2 no S3 or S4 no heave or thrill or rub or gallop RESPIRATORY: Clear to auscultation. Breath sounds equal bilaterally. No wheezes , rales, or rhonchi. GASTROINTESTINAL: Abdomen soft, non-tender, nondistended. No guarding. MUSCULOSKELETAL: Extremities without clubbing, cyanosis, or edema. No joint tenderness, effusion, or edema noted. EXTREMITIES: Left upper and lower extremity weakness noted, left upper arm 3/5, left lower leg 4/5. Right side muscle strength is 5 out of 5 in upper extremity and lower extremity NEUROLOGICAL: Awake and alert. Cranial nerves II through XII intact. Motor and sensory grossly within normal limits Normal speech. Insight and judgment is poor mood and behavior is somewhat appropriate Medications and IVs Current Medications Sodium Chloride (NS Flush) 2 ml UNSCH PRN IVF FLUSH AFTER USING IV ACCESS; Start 02/09/17 at 16:30; Stop 02/09/17 at 19:29; Status DC IV Flush (NS Flush) 2 ml BID IV FLUSH Last administered on 02/10/17t 09:00; Start 02/09/17 at 21:00 IV Flush (NS Flush) 2 ml UNSCH PRN IV FLUSH FLUSH AFTER USING IV ACCESS; Start 02/09/17 at 19:00 Insulin Aspart (NovoLOG SUPPLEMENTAL SCALE) 1 ACHS SQ ; Start 02/09/17 at 21:00 Dextrose (D50w (Vial) Inj) 50 ml UNSCH PRN IV PUSH HYPOGLYCEMIA-SEE COMMENTS; Start 02/09/17 at 19:00 Glucagon 1 mg 1 mg UNSCH PRN OTHER HYPOGLYCEMIA-SEE COMMENTS; Start 02/09/17 at 19:00 Sodium Chloride (NS 1000 ml Inj) 1,000 ml @ 42 mls/hr [id number] IV Last administered on 02/09/17 19:55; Start 02/09/17 at 18:55; Stop 02/10/17 at 08:39 ; Status DC Acetaminophen (Tylenol) 650 mg Q4H PRN PO TEMP > 100.4; Start 02/09/17 at 19:00 Ondansetron HCl (Zofran Inj) 4 mg Q6H PRN IVP NAUSEA OR VOMITING; Start at 19:00 Senna/Docusate Sodium (Dianne-Colace) 1 tab BID PO Last administered on 10:05; Start 02/09/17 at 21:00 Magnesium Hydroxide (Milk Of Magnesia Liq) 30 ml Q12H PRN PO MILD - MODERATE CONSTIPATION; Start 02/09/17 at 19:00 Aspirin (Aspirin) 325 mg DAILY PO ; Start 02/10/17 at 09:00; Stop 02/10/17 at 09 :00; Status DC Atorvastatin Calcium (Lipitor) 20 mg HS PO ; Start 02/09/17 at 21:00 Levothyroxine Sodium (Synthroid) 100 mcg DAILY@06 PO ; Start 02/10/17 at 06:00 Pantoprazole Sodium 20 mg 20 mg DAILY PO Last administered on 02/10/17 10:06; Start 02/10/17 at 09:00 Ceftriaxone Sodium/Sodium Chloride (Rocephin Inj/NS Inj) 100 ml @ 200 mls/hr Q24H IV Last administered on 02/09/17 19:55; Start 02/09/17 at 20:00 Lorazepam (Ativan Inj) 1 mg ONCE ONCE IV PUSH Last administered on 02/09/17 20:17; Start 02/09/17 at 20:00; Stop 02/09/17 at 20:02; Status DC Warfarin Sodium 5 mg 5 mg DAILY@1600 PO ; Start 02/10/17 at 16:00 Heparin Sodium/ Dextrose 250 ml @ 0 mls/hr TITRATE IV Last administered on 02/10 11:30; Start 02/10/17 at 08:30 Sodium Chloride (NS 1000 ml Inj) 1,000 ml @ 75 mls/hr [id number] IV Last administered on 02/10/17 10:07; Start 02/10/17 at 09:00 A/P Problem List: (1) Hypertension ICD Code: I10 Status: Acute (2) GERD (gastroesophageal reflux disease) ICD Code: K21.9 Status: Acute (3) Hyperlipidemia ICD Code: E78.5 Status: Acute (4) UTI (urinary tract infection) ICD Code: N39.0 Status: Acute (5) Atrial fibrillation ICD Code: I48.91 Status: Acute (6) CVA (cerebral vascular accident) ICD Code: I63.9 Status: Acute (7) Atypical chest pain ICD Code: R07.89 Status: Acute Assessment and Plan Ms. Parkinson 81-year-old male patient with a known medical history of dyslipidemia, hypertension, and atrial fibrillation who presented to the ED with left sided weakness. Precipitating symptoms related to this event this morning includes general left lower extremity weakness 2 days ago which eventually resolved and dizziness upon awakening this morning. Denies any previous similar symptoms. Denies any history of TIA/CVA. Patient is independent , lives alone and able to perform all ADLs and IADLs. On presentation WBC 13, afebrile, Head CT performed, EKG showing controlled atrial fibrillation, UA positive for leukocyte esterase. Left upper and lower extremity sided weakness suspect secondary to POSITIVE CVA - Head CT done showing stable appearance with small vessel ischemic changes. - Neurology consulted, appreciate input and further recommendations. - Will order MRI/MRA of brain. US of bilateral carotids ordered. Follow. MRI IS POSITIVE FOR CVA - LOAD COUMADIN - Continue neuro checks. Continue NIH scale for now. ECHO Acute on chronic kidney injury with stage 3 kidney disease - Creatinine upon presentation 1.35. Unknown baseline. - Slowly hydrate patient, NS at 42 ml/hr. - Monitor intake and output closely. Leukocytosis, mild suspect secondary to stress reaction: WBC 13.0. Afebrile. Monitor fever. Repeat CBC in am, follow. Chronic atrial fibrillation: Controlled rate. Continue home Cardizem. Continue cardiac telemetry. Monitor closely. Continue home aspirin. ADD COUMADIN AND LOAD WITH HEPARIN BRIDGE Hypertension, chronic: Relatively controlled. Will allow permissive hypertension for now. Monitor closely. Dyslipidemia: Continue home atorvastatin. Hypothyroidism: Continue home levothyroxine. DVT prophylaxis: SCDs/TEDs/Aspirin for now. DYSURIA RULE OUT UTI UTI ON ROCEPHIN Problem Qualifiers (1) CVA (cerebral vascular accident): Qualified Code: I63.9 - Cerebrovascular accident (CVA), unspecified mechanism Dat Kenney DO Feb 10, 2017 12:02
[2017-02-10 14:09] LABS: HEMOGLOBIN A1b 2.4 %; HEMOGLOBIN Ao 82.9 %; HEMOGLOBIN LA1C 2.2 %; HEMOGLOBIN P3 4.4 %
--- NOTE | 2017-02-10 16:12 | EKG ---
Date Performed: 02/09/2017 Time Performed: 17:41:46 PTAGE: 81 years EKG: ATRIAL FIBRILLATION NONSPECIFIC ST & T-WAVE ABNORMALITY Compared to previous tracing, there 's a rhythm change from sinus bradycardia to atrial fibrillation. ST-T changes are slightly more prom inent ABNORMAL RHYTHM ECG PREVIOUS TRACING : 01/26/2015 07.45 DOCTOR: Aric Ernst Interpretating Date/Time 02/10/2017 16:11:42
[2017-02-10] MEDS: WARFARIN SOD 5 MG TAB PO SCH (17:26)
[2017-02-10 19:35] LABS: APTT (PATIENT) 26.3 SEC (24.3-30.1)
[2017-02-10] MEDS: ATORVASTATIN 20 MG TAB PO SCH (20:51)
[2017-02-10] MEDS: cefTRIAXone INJ 1,000 MG in SODIUM CHLORIDE 0.9% INJ 100 ML IV SCH (20:51)
[2017-02-11 01:31] VITALS: BP 141/73; PULSE 62; RESP 18; TEMP 98.2; O2SAT 95
[2017-02-11 03:57] LABS: BASOPHIL % 0.2 % (0.0-2.0); EOSINOPHIL # 0.3 TH/MM3 (0-0.4); EOSINOPHIL % 2.3 % (0.0-4.0); HEMATOCRIT 32.2 % (35.0-46.0); HEMO FLAGS DIFF FINAL; LYMPH % 18.8 % (9.0-44.0); LYMPHOCYTE # 2.3 TH/MM3 (1.0-4.8); MEAN CELL VOLUME 93.1 FL (80.0-100.0); MEAN CORPUSCULAR HEMOGLOBIN 30.9 PG (27.0-34.0); MEAN CORPUSCULAR HGB CONC 33.2 % (32.0-36.0); NEUT % 72.7 % (16.0-70.0); PLATELET COUNT 277 TH/MM3 (150-450); RED BLOOD COUNT 3.46 MIL/MM3 (4.00-5.30); RED CELL DISTRIBUTION WIDTH 14.8 % (11.6-17.2); WHITE BLOOD COUNT 12.4 TH/MM3 (4.0-11.0)
[2017-02-11 04:00] VITALS: BP 139/71; PULSE 65; RESP 20; TEMP 98.5; O2SAT 93
[2017-02-11 04:05] LABS: APTT (PATIENT) 33.8 SEC (24.3-30.1); PROTHROMBIN TIME - PATIENT 11.1 SEC (9.8-11.6)
[2017-02-11 04:10] LABS: ALT (GPT) 10 U/L (10-53); ANION GAP 10 MEQ/L (5-15); AST (GOT) 14 U/L (15-37); BICARBONATE 26.8 MEQ/L (21.0-32.0); BLOOD UREA NITROGEN 20 MG/DL (7-18); CHLORIDE 103 MEQ/L (98-107); GLOMERULAR FILTRATION RATE 45 ML/MIN (>89); POTASSIUM 3.6 MEQ/L (3.5-5.1); SODIUM (NA) 140 MEQ/L (136-145)
[2017-02-11 04:12] LABS: ALKALINE PHOSPHATASE 102 U/L (45-117); TOTAL BILIRUBIN ADULT 0.3 MG/DL (0.2-1.0)
[2017-02-11] MEDS: LEVOTHYROXINE SODIUM 100 MCG TAB PO SCH (05:56)
[2017-02-11] MEDS: INSULIN ASPART SUPPLEMENTAL SCALE SQ SCH ×3 (07:00→21:00)
[2017-02-11 08:00] VITALS: BP 139/68; PULSE 64; RESP 18; TEMP 97.7; O2SAT 94
[2017-02-11] MEDS: PANTOPRAZOLE SOD 20 MG DELAYED RELEASE TAB PO SCH (09:30)
[2017-02-11] MEDS: DOCUSATE SODIUM 50 MG/SENNA 8.6 MG TAB PO SCH ×2 (09:35→22:23)
[2017-02-11] MEDS: SODIUM CHLORIDE 0.9% FLUSH 5 ML FLUSH IV FLUSH SCH (09:35)
--- NOTE | 2017-02-11 10:01 | HHI.PR ---
Subjective Remarks sr Objective Vital Signs Date Time Temp Pulse Resp B/P (MAP) Pulse Ox O2 Delivery O2 Flow Rate FiO2 02/11/17 04:00 98.5 65 20 139/71 (93) 93 02/11/17 01:31 98.2 62 18 141/73 (95) 95 02/10/17 20:44 67 02/10/17 20:00 98.5 66 18 133/63 (86) 100 02/10/17 20:00 98.9 66 18 133/63 (86) 100 02/10/17 16:05 97.3 61 18 114/59 (77) 95 02/10/17 13:50 21 02/10/17 12:00 97.9 61 19 121/60 (80) 94 I/O 02/10/17 02/10/17 02/10/17 02/11/17 02/11/17 02/11/17 07:00 15:00 23:00 07:00 15:00 23:00 Intake Total 120 ml Output Total 1 ml 80 ml Balance -1 ml 40 ml Intake Oral 120 ml Output Urine Total 1 ml 80 ml # Voids 1 # Bowel Movements 0 Result Diagram: 02/11/1722402/11/175 Objective Remarks now 0/5 r hand moves tricep and bicep well Hipolito Stephens MD Feb 11, 2017 10:01
[2017-02-11 12:00] VITALS: BP 144/63; PULSE 67; RESP 17; TEMP 98; O2SAT 95
--- NOTE | 2017-02-11 13:59 | ECHRPT ---
Indication: CVA/TIA CONCLUSIONS Normal left ventricular size. Wall thickness is normal. The left ventricular systolic function is normal with an estimated ejection fraction in the range of 55-60%. The left atrial size is upper limits of normal. Trace mitral valve regurgitation. Mild aortic valve regurgitation. There is mild to moderate tricuspid valve regurgitation. There is estimated mild pulmonary hypertension present (42 mmHg). Trivial pulmonary valve regurgitation. BP: / HR: Rhythm: Sinus MEASUREMENTS (Male / Female) Normal Values Technical Quality:Good 2D ECHO LV Diastolic Diameter PLAX 4.3 cm 4.2 - 5.9 / 3.9 - 5.3 cm LV Systolic Diameter PLAX 3.2 cm IVS Diastolic Thickness 1.1 cm 0.6 - 1.0 / 0.6 - 0.9 cm LVPW Diastolic Thickness 0.8 cm 0.6 - 1.0 / 0.6 - 0.9 cm LV Relative Wall Thickness 0.4 RV Internal Dim ED PLAX 2.0 cm LA Systolic Diameter LX 3.6 cm 3.0 - 4.0 / 2.7 - 3.8 cm M-MODE Aortic Root Diameter MM 3.0 cm AV Cusp Separation MM 2.0 cm DOPPLER AV Peak Velocity 221.0 cm/s AV Peak Gradient 19.5 mmHg AV Mean Gradient 10.0 mmHg AV Velocity Time Integral 54.7 cm LVOT Peak Velocity 134.0 cm/s LVOT Peak Gradient 7.2 mmHg LVOT Velocity Time Integral 29.8 cm MV Peak Velocity 119.0 cm/s MV Peak Gradient 5.7 mmHg MV Mean Velocity 57.6 cm/s MV Mean Gradient 2.0 mmHg Mitral E Point Velocity 117.0 cm/s Mitral A Point Velocity 95.6 cm/s Mitral E to A Ratio 1.2 LV E' Lateral Velocity 8.1 cm/s Mitral E to LV E' Lateral Ratio 14.5 LV E' Septal Velocity 6.6 cm/s Mitral E to LV E' Septal Ratio 17.8 TR Peak Velocity 305.0 cm/s TR Peak Gradient 37.2 mmHg FINDINGS LEFT VENTRICLE Normal left ventricular size. Wall thickness is normal. The left ventricular systolic function is normal with an estimated ejection fraction in the range of 55-60%. RIGHT VENTRICLE Normal right ventricular size and systolic function. LEFT ATRIUM The left atrial size is upper limits of normal. RIGHT ATRIUM The right atrial size is normal. ATRIAL SEPTUM Normal atrial septal thickness without atrial level shunting by limited color doppler interrogation. AORTA The aortic root and proximal ascending aorta are normal in size on limited imaging. MITRAL VALVE Trace mitral valve regurgitation. AORTIC VALVE Mild aortic valve regurgitation. TRICUSPID VALVE There is mild to moderate tricuspid valve regurgitation. There is estimated mild pulmonary hypertension present (42 mmHg). PULMONARY VALVE Trivial pulmonary valve regurgitation. VESSELS The inferior vena cava is normal in size. PERICARDIUM No pericardial effusion. Costa Martinez MD (Electronically Signed) Final Date:11 February 2017 13:59
[2017-02-11] MEDS: SODIUM CHLOR 0.9% 1000 ML INJ 1,000 ML IV SCH (14:34)
[2017-02-11] MEDS: HEPARIN-D5W 25,000 U/250 ML 250 ML IV SCH (14:37)
[2017-02-11 16:00] VITALS: BP 138/63; PULSE 73; RESP 18; TEMP 98.3; O2SAT 94
[2017-02-11] MEDS: WARFARIN SOD 5 MG TAB PO SCH (16:00)
--- NOTE | 2017-02-11 16:09 | HHI.PR ---
Subjective Remarks Ms. Parkinson 81-year-old [place] patient with a known medical history of dyslipidemia, hypertension, and atrial fibrillation who presented to the ED with left sided weakness. Patient seen and examined in ED with daughter at bedside. Per daughter, patient was in [place] this am before boarding the plane became very weak, unable to walk and complaint of left upper and lower extremity weakness. She was placed in a wheelchair and boarded the plane despite these symptoms. Upon arriving in [facility] her daughter recognized these symptoms and immediately drove her here to the ED. Precipitating symptoms related to this event this morning includes general left lower extremity weakness 2 days ago which eventually resolved and dizziness upon awakening this morning. Denies any previous similar symptoms. Denies any history of TIA/CVA. Denies any associated symptoms including fever, chills, cough, dysphagia, lightheadedness, headache, nausea, slurred speech, confusion, diplopia or any vision changes. Patient did state that she took all of her medications this morning including her Aspirin 325 mg. It is important to note patient has been treated for UTI by her PCP within the last month and PO antibiotics. States she is still having some dysuria. 8 POSITIVE CVA ON MRI NEUROLOGY WANTS ON COUMADIN- CONTINUE HEPARIN AND COUMADIN FOR GOAL INR OF 2.0 AND 3.0 FOR AFIB DW PT AND FAMILY AND RN QUESTIONS ANSWERED STILL WITH LEFT UPPER EXTREMITY WEAKNESS 820 LEFT HAND IS FLACCID NOW WITH 0/5 STRENGTH LOAD COUMADIN DW RN AND PT AND NEUROLOGY Objective Vitals Vital Signs Date Time Temp Pulse Resp B/P (MAP) Pulse Ox O2 Delivery O2 Flow Rate FiO2 02/11/17 12:00 98.0 67 17 144/63 (90) 95 02/11/17 08:00 97.7 64 18 139/68 (91) 94 02/11/17 04:00 98.5 65 20 139/71 (93) 93 02/11/17 01:31 98.2 62 18 141/73 (95) 95 02/10/17 20:44 67 02/10/17 20:00 98.5 66 18 133/63 (86) 100 02/10/17 20:00 98.9 66 18 133/63 (86) 100 02/10/17 16:05 97.3 61 18 114/59 (77) 95 I/O 02/10/17 02/10/17 02/10/17 02/11/17 02/11/17 02/11/17 07:00 15:00 23:00 07:00 15:00 23:00 Intake Total 120 ml Output Total 1 ml 80 ml Balance -1 ml 40 ml Intake Oral 120 ml Output Urine Total 1 ml 80 ml # Voids 1 # Bowel Movements 0 Result Diagram: 02/11/17 0225 02/11/17 0225 Other Results Laboratory Tests Test 02/10/17 18:38 02/11/17 02:25 02/11/17 11:02 Activated Partial Thromboplast Time 26.3 SEC 33.8 SEC 41.0 SEC White Blood Count 12.4 TH/MM3 Red Blood Count 3.46 MIL/MM3 Hemoglobin 10.7 GM/DL Hematocrit 32.2 % Mean Corpuscular Volume 93.1 FL Mean Corpuscular Hemoglobin 30.9 PG Mean Corpuscular Hemoglobin Concent 33.2 % Red Cell Distribution Width 14.8 % Platelet Count 277 TH/MM3 Mean Platelet Volume 9.1 FL Neutrophils (%) (Auto) 72.7 % Lymphocytes (%) (Auto) 18.8 % Monocytes (%) (Auto) 6.0 % Eosinophils (%) (Auto) 2.3 % Basophils (%) (Auto) 0.2 % Neutrophils # (Auto) 9.0 TH/MM3 Lymphocytes # (Auto) 2.3 TH/MM3 Monocytes # (Auto) 0.7 TH/MM3 Eosinophils # (Auto) 0.3 TH/MM3 Basophils # (Auto) 0.0 TH/MM3 CBC Comment DIFF FINAL Differential Comment Prothrombin Time 11.1 SEC Prothromb Time International Ratio 1.0 RATIO Blood Urea Nitrogen 20 MG/DL Creatinine 1.15 MG/DL Random Glucose 122 MG/DL Total Protein 6.5 GM/DL Albumin 3.0 GM/DL Calcium Level 8.4 MG/DL Phosphorus Level 2.5 MG/DL Magnesium Level 2.0 MG/DL Alkaline Phosphatase 102 U/L Aspartate Amino Transf (AST/SGOT) 14 U/L Alanine Aminotransferase (ALT/SGPT) 10 U/L Total Bilirubin 0.3 MG/DL Sodium Level 140 MEQ/L Potassium Level 3.6 MEQ/L Chloride Level 103 MEQ/L Carbon Dioxide Level 26.8 MEQ/L Anion Gap 10 MEQ/L Estimat Glomerular Filtration Rate 45 ML/MIN Imaging Last Impressions Head CT 02/09/17 1624 Signed Impressions: Service Date/Time: Thursday, February 09, 2017 16:50 - CONCLUSION: Stable appearance with small vessel ischemic change. Raghavendra Joseph MD Head Magnetic Resonance Angiography 02/09/17 0000 Signed Impressions: Service Date/Time: Thursday, February 09, 2017 20:22 - CONCLUSION: Intracranial arteries are within normal limits. Isidro Robison MD Carotid Artery Ultrasound 02/09/17 0000 Signed Impressions: Service Date/Time: Thursday, February 09, 2017 19:29 - CONCLUSION: Tortuous carotid systems bilaterally. No significant plaque or narrowing. Isidro Robison MD Brain MRI 02/09/17 0000 Signed Impressions: Service Date/Time: Thursday, February 09, 2017 20:22 - CONCLUSION: 1. Subcentimeter acute or subacute periventricular white matter infarct posteriorly in the right frontal lobe. 2. Mild to moderate chronic white matter ischemic changes. Isidro Robison MD Objective Remarks GENERAL: Well-nourished, well-developed female patient, in no apparent distress. SKIN: No rashes, ecchymoses or lesions. Warm and dry. HEAD: Atraumatic. Normocephalic. Pupils equal round and reactive. Extraocular motions intact. No scleral icterus. No injection or drainage. Nose without bleeding. Uvula midline. Airway patent. Tongue is abnormal on the left side chronically for 50+ years she states NECK: Trachea midline. No JVD. Supple. CARDIOVASCULAR: Irregularly irregular rhythm. S1-S2 no S3 or S4 no heave or thrill or rub or gallop RESPIRATORY: Clear to auscultation. Breath sounds equal bilaterally. No wheezes , rales, or rhonchi. GASTROINTESTINAL: Abdomen soft, non-tender, nondistended. No guarding. MUSCULOSKELETAL: Extremities without clubbing, cyanosis, or edema. No joint tenderness, effusion, or edema noted. EXTREMITIES: Left upper and lower extremity weakness noted, left upper arm 3/5, left lower leg 4/5. LEFT HAND 0/5 Right side muscle strength is 5 out of 5 in upper extremity and lower extremity NEUROLOGICAL: Awake and alert. Cranial nerves II through XII intact. Motor and sensory grossly within normal limits Normal speech. Insight and judgment is poor mood and behavior is somewhat appropriate Procedures ECHO Indication: CVA/TIA CONCLUSIONS Normal left ventricular size. Wall thickness is normal. The left ventricular systolic function is normal with an estimated ejection fraction in the range of 55-60%. The left atrial size is upper limits of normal. Trace mitral valve regurgitation. Mild aortic valve regurgitation. There is mild to moderate tricuspid valve regurgitation. There is estimated mild pulmonary hypertension present (42 mmHg). Trivial pulmonary valve regurgitation. Medications and IVs Current Medications Sodium Chloride (NS Flush) 2 ml UNSCH PRN IVF FLUSH AFTER USING IV ACCESS; Start 02/09/17 at 16:30; Stop 02/09/17 at 19:29; Status DC IV Flush (NS Flush) 2 ml BID IV FLUSH Last administered on 02/11/17 09:35; Start 02/09/17 at 21:00 IV Flush (NS Flush) 2 ml UNSCH PRN IV FLUSH FLUSH AFTER USING IV ACCESS; Start 02/09/17 at 19:00 Insulin Aspart (NovoLOG SUPPLEMENTAL SCALE) 1 ACHS SQ ; Start 02/09/17 at 21:00 Dextrose (D50w (Vial) Inj) 50 ml UNSCH PRN IV PUSH HYPOGLYCEMIA-SEE COMMENTS; Start 02/09/17 at 19:00 Glucagon (Glucagon Inj) 1 mg UNSCH PRN OTHER HYPOGLYCEMIA-SEE COMMENTS; Start 02/09/17 at 19:00 Sodium Chloride 1,000 ml @ 42 mls/hr [id number] IV Last administered on 19:55; Start 02/09/17 at 18:55; Stop 02/10/17 at 08:39; Status DC Acetaminophen (Tylenol) 650 mg Q4H PRN PO TEMP > 100.4; Start 02/09/17 at 19:00 Ondansetron HCl (Zofran Inj) 4 mg Q6H PRN IVP NAUSEA OR VOMITING; Start at 19:00 Senna/Docusate Sodium (Dianne-Colace) 1 tab BID PO Last administered on 09:35; Start 02/09/17 at 21:00 Magnesium Hydroxide (Milk Of Magnesia Liq) 30 ml Q12H PRN PO MILD - MODERATE CONSTIPATION; Start 02/09/17 at 19:00 Aspirin (Aspirin) 325 mg DAILY PO ; Start 02/10/17 at 09:00; Stop 02/10/17 at 09 :00; Status DC Atorvastatin Calcium (Lipitor) 20 mg HS PO Last administered on 02/10/17 20:51 ; Start 02/09/17 at 21:00 Levothyroxine Sodium (Synthroid) 100 mcg DAILY@06 PO Last administered on 05:56; Start 02/10/17 at 06:00 Pantoprazole Sodium (Protonix) 20 mg DAILY PO Last administered on 02/11/17 09 :30; Start 02/10/17 at 09:00 Ceftriaxone Sodium 1000 mg/ Sodium Chloride 100 ml @ 200 mls/hr Q24H IV Last administered on 02/10/17 20:51; Start 02/09/17 at 20:00 Lorazepam (Ativan Inj) 1 mg ONCE ONCE IV PUSH Last administered on 02/09/17 20:17; Start 02/09/17 at 20:00; Stop 02/09/17 at 20:02; Status DC Warfarin Sodium (Coumadin) 5 mg DAILY@1600 PO Last administered on 02/10/17 17 :26; Start 02/10/17 at 16:00 Heparin Sodium/ Dextrose 250 ml @ 0 mls/hr TITRATE IV Last administered on 02/11 14:37; Start 02/10/17 at 08:30 Sodium Chloride 1,000 ml @ 75 mls/hr [id number] IV Last administered on 14:34; Start 02/10/17 at 09:00 A/P Problem List: (1) Hypertension ICD Code: I10 - Essential (primary) hypertension Status: Acute (2) GERD (gastroesophageal reflux disease) ICD Code: K21.9 - Gastro-esophageal reflux disease without esophagitis Status: Acute (3) Hyperlipidemia ICD Code: E78.5 - Hyperlipidemia, unspecified Status: Acute (4) UTI (urinary tract infection) ICD Code: N39.0 - Urinary tract infection, site not specified Status: Acute (5) Atrial fibrillation ICD Code: I48.91 - Unspecified atrial fibrillation Status: Acute (6) CVA (cerebral vascular accident) ICD Code: I63.9 - Cerebral infarction, unspecified Status: Acute (7) Atypical chest pain ICD Code: R07.89 - Atypical chest pain Status: Acute Assessment and Plan Ms. Parkinson 81-year-old [place] patient with a known medical history of dyslipidemia, hypertension, and atrial fibrillation who presented to the ED with left sided weakness. Precipitating symptoms related to this event this morning includes general left lower extremity weakness 2 days ago which eventually resolved and dizziness upon awakening this morning. Denies any previous similar symptoms. Denies any history of TIA/CVA. Patient is independent , lives alone and able to perform all ADLs and IADLs prior to hospitalization. On presentation WBC 13, afebrile, Head CT performed, EKG showing controlled atrial fibrillation, UA positive for leukocyte esterase. Left upper and lower extremity sided weakness suspect secondary to POSITIVE CVA - Head CT done showing stable appearance with small vessel ischemic changes. - Neurology consulted, appreciate input and further recommendations. - Will order MRI/MRA of brain. US of bilateral carotids ordered. Follow. MRI IS POSITIVE FOR CVA - LOAD COUMADIN - Continue neuro checks. Continue NIH scale for now. ECHO reviewed Acute on chronic kidney injury with stage 3 kidney disease - Creatinine upon presentation 1.35. Unknown baseline. - Slowly hydrate patient, NS at 42 ml/hr. - Monitor intake and output closely. Leukocytosis, mild suspect secondary to stress reaction: WBC 13.0. Afebrile. Monitor fever. Repeat CBC in am, follow. Chronic atrial fibrillation: Controlled rate. Continue home Cardizem. Continue cardiac telemetry. Monitor closely. Continue home aspirin. ADD COUMADIN AND LOAD WITH HEPARIN BRIDGE Hypertension, chronic: Relatively controlled. Will allow permissive hypertension for now. Monitor closely. Dyslipidemia: Continue home atorvastatin. Hypothyroidism: Continue home levothyroxine. DVT prophylaxis: SCDs/TEDs/Aspirin for now. DYSURIA RULE OUT UTI UTI ON ROCEPHIN Load Coumadin with heparin bridge PT OT and speech therapy regarding cognitive as well as swelling Problem Qualifiers (1) CVA (cerebral vascular accident): Dat Kenney DO Feb 11, 2017 16:09
[2017-02-11 18:37] LABS: APTT (PATIENT) 31.1 SEC (24.3-30.1)
[2017-02-11 20:00] VITALS: BP 162/74; PULSE 65; RESP 18; TEMP 98.1; O2SAT 95
[2017-02-11] MEDS: ATORVASTATIN 20 MG TAB PO SCH (22:23)
[2017-02-11] MEDS: cefTRIAXone INJ 1,000 MG in SODIUM CHLORIDE 0.9% INJ 100 ML IV SCH (22:24)
[2017-02-12] VITALS (7 sets, daily range): BP systolic 115–189; BP diastolic 67–80; PULSE 56–94; RESP 18–20; TEMP 97.5–98.4; O2SAT 93–95
[2017-02-12 01:35] LABS: AUTOMATED NEUTROPHIL # 9.5 TH/MM3 (1.8-7.7); BASOPHIL # 0.1 TH/MM3 (0-0.2); BASOPHIL % 0.4 % (0.0-2.0); EOSINOPHIL # 0.5 TH/MM3 (0-0.4); EOSINOPHIL % 3.5 % (0.0-4.0); HEMATOCRIT 30.6 % (35.0-46.0); HEMO FLAGS DIFF FINAL; LYMPHOCYTE # 2.5 TH/MM3 (1.0-4.8); MEAN CORPUSCULAR HEMOGLOBIN 29.9 PG (27.0-34.0); MEAN CORPUSCULAR HGB CONC 32.2 % (32.0-36.0); NEUT % 71.1 % (16.0-70.0); PLATELET COUNT 279 TH/MM3 (150-450); RED BLOOD COUNT 3.29 MIL/MM3 (4.00-5.30); RED CELL DISTRIBUTION WIDTH 14.9 % (11.6-17.2); WHITE BLOOD COUNT 13.3 TH/MM3 (4.0-11.0)
[2017-02-12 01:40] LABS: ALT (GPT) 9 U/L (10-53); ANION GAP 8 MEQ/L (5-15); AST (GOT) 16 U/L (15-37); BICARBONATE 27.9 MEQ/L (21.0-32.0); BLOOD UREA NITROGEN 12 MG/DL (7-18); CHLORIDE 106 MEQ/L (98-107); GLOMERULAR FILTRATION RATE 64 ML/MIN (>89); POTASSIUM 3.6 MEQ/L (3.5-5.1); SODIUM (NA) 142 MEQ/L (136-145)
[2017-02-12 01:42] LABS: ALKALINE PHOSPHATASE 85 U/L (45-117); TOTAL BILIRUBIN ADULT 0.3 MG/DL (0.2-1.0)
[2017-02-12 01:44] LABS: INTERNATIONAL NORMALIZED RATIO 1.1 RATIO; PROTHROMBIN TIME - PATIENT 11.7 SEC (9.8-11.6)
[2017-02-12 01:45] LABS: APTT (PATIENT) 40.7 SEC (24.3-30.1)
[2017-02-12] MEDS: LEVOTHYROXINE SODIUM 100 MCG TAB PO SCH (05:47)
--- NOTE | 2017-02-12 07:35 | HHI.PR ---
Subjective Remarks sr Objective Vital Signs Date Time Temp Pulse Resp B/P (MAP) Pulse Ox O2 Delivery O2 Flow Rate FiO2 02/12/17 05:57 97.6 56 20 155/74 (101) 93 02/12/17 00:57 97.9 71 19 189/80 (116) 94 02/11/17 20:00 98.1 65 18 162/74 (103) 95 02/11/17 20:00 98.1 65 18 162/74 (103) 95 02/11/17 16:00 98.3 73 18 138/63 (88) 94 02/11/17 12:00 98.0 67 17 144/63 (90) 95 02/11/17 08:00 97.7 64 18 139/68 (91) 94 I/O 02/11/17 02/11/17 02/11/17 02/12/17 02/12/17 02/12/17 07:00 15:00 23:00 07:00 15:00 23:00 Intake Total 120 ml Output Total 80 ml Balance 40 ml Intake Oral 120 ml Output Urine Total 80 ml # Voids 5 6 # Bowel Movements 4 Result Diagram: 02/12/1711002/12/17110 Objective Remarks now 0/5 r hand still move lue ow better lle nl moves tricep and bicep well Assessment and Plan Assessment and Plan imp inr 1 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
[2017-02-12 08:41] LABS: APTT (PATIENT) 51.6 SEC (24.3-30.1)
[2017-02-12] MEDS: DOCUSATE SODIUM 50 MG/SENNA 8.6 MG TAB PO SCH ×2 (09:00→22:35)
[2017-02-12] MEDS: SODIUM CHLORIDE 0.9% FLUSH 5 ML FLUSH IV FLUSH SCH ×2 (09:00→22:45)
[2017-02-12] MEDS: PANTOPRAZOLE SOD 20 MG DELAYED RELEASE TAB PO SCH (09:50)
[2017-02-12] MEDS: INSULIN ASPART SUPPLEMENTAL SCALE SQ SCH (11:00)
--- NOTE | 2017-02-12 15:36 | HHI.PR ---
Subjective Remarks Ms. Parkinson 81-year-old [place] patient with a known medical history of dyslipidemia, hypertension, and atrial fibrillation who presented to the ED with left sided weakness. Patient seen and examined in ED with daughter at bedside. Per daughter, patient was in [place] this am before boarding the plane became very weak, unable to walk and complaint of left upper and lower extremity weakness. She was placed in a wheelchair and boarded the plane despite these symptoms. Upon arriving in [facility] her daughter recognized these symptoms and immediately drove her here to the ED. Precipitating symptoms related to this event this morning includes general left lower extremity weakness 2 days ago which eventually resolved and dizziness upon awakening this morning. Denies any previous similar symptoms. Denies any history of TIA/CVA. Denies any associated symptoms including fever, chills, cough, dysphagia, lightheadedness, headache, nausea, slurred speech, confusion, diplopia or any vision changes. Patient did state that she took all of her medications this morning including her Aspirin 325 mg. It is important to note patient has been treated for UTI by her PCP within the last month and PO antibiotics. States she is still having some dysuria. 8-19 POSITIVE CVA ON MRI NEUROLOGY WANTS ON COUMADIN- CONTINUE HEPARIN AND COUMADIN FOR GOAL INR OF 2.0 AND 3.0 FOR AFIB DW PT AND FAMILY AND RN QUESTIONS ANSWERED STILL WITH LEFT UPPER EXTREMITY WEAKNESS 8-20 LEFT HAND IS FLACCID NOW WITH 0/5 STRENGTH LOAD COUMADIN DW RN AND PT AND NEUROLOGY 8-21 WORKING WITH PT AND OT AND ST MOVING LEFT UE A LITTLE MORE CONTINUE TO LOAD COUMADIN- SLOW GOING INR 1.1 GOAL INR 2.0 TO 3.0 DW PT AND RN Objective Vitals Vital Signs Date Time Temp Pulse Resp B/P (MAP) Pulse Ox O2 Delivery O2 Flow Rate FiO2 02/12/17 08:00 98.1 60 18 146/75 (98) 93 02/12/17 05:57 97.6 56 20 155/74 (101) 93 02/12/17 00:57 97.9 71 19 189/80 (116) 94 02/11/17 20:00 98.1 65 18 162/74 (103) 95 02/11/17 20:00 98.1 65 18 162/74 (103) 95 02/11/17 16:00 98.3 73 18 138/63 (88) 94 I/O 02/11/17 02/11/17 02/11/17 02/12/17 02/12/17 02/12/17 07:00 15:00 23:00 07:00 15:00 23:00 Intake Total 120 ml Output Total 80 ml Balance 40 ml Intake Oral 120 ml Output Urine Total 80 ml # Voids 5 6 # Bowel Movements 4 Result Diagram: 02/12/17 0111 02/12/17 0111 Other Results Laboratory Tests Test 02/09/17 16:24 02/09/17 16:30 02/09/17 17:43 02/10/17 09:15 Prothrombin Time 10.7 SEC 11.3 SEC Prothromb Time International Ratio 1.0 RATIO 1.0 RATIO Activated Partial Thromboplast Time 24.3 SEC 23.5 SEC White Blood Count 13.0 TH/MM3 13.3 TH/MM3 Red Blood Count 4.00 MIL/MM3 3.61 MIL/MM3 Hemoglobin 11.9 GM/DL 10.8 GM/DL Hematocrit 37.1 % 33.5 % Mean Corpuscular Volume 92.8 FL 92.9 FL Mean Corpuscular Hemoglobin 29.9 PG 29.9 PG Mean Corpuscular Hemoglobin Concent 32.2 % 32.2 % Red Cell Distribution Width 15.3 % 15.0 % Platelet Count 330 TH/MM3 288 TH/MM3 Mean Platelet Volume 8.6 FL 8.0 FL Neutrophils (%) (Auto) 73.5 % 80.0 % Lymphocytes (%) (Auto) 18.6 % 12.9 % Monocytes (%) (Auto) 5.7 % 5.7 % Eosinophils (%) (Auto) 1.8 % 1.1 % Basophils (%) (Auto) 0.4 % 0.3 % Neutrophils # (Auto) 9.6 TH/MM3 10.6 TH/MM3 Lymphocytes # (Auto) 2.4 TH/MM3 1.7 TH/MM3 Monocytes # (Auto) 0.7 TH/MM3 0.8 TH/MM3 Eosinophils # (Auto) 0.2 TH/MM3 0.1 TH/MM3 Basophils # (Auto) 0.1 TH/MM3 0.0 TH/MM3 CBC Comment DIFF FINAL DIFF FINAL Differential Comment Blood Urea Nitrogen 25 MG/DL 23 MG/DL Creatinine 1.35 MG/DL 1.01 MG/DL Random Glucose 164 MG/DL 113 MG/DL Calcium Level 8.1 MG/DL 7.7 MG/DL Sodium Level 139 MEQ/L 137 MEQ/L Potassium Level 3.6 MEQ/L 3.6 MEQ/L Chloride Level 102 MEQ/L 101 MEQ/L Carbon Dioxide Level 24.2 MEQ/L 28.3 MEQ/L Anion Gap 13 MEQ/L 8 MEQ/L Estimat Glomerular Filtration Rate 37 ML/MIN 52 ML/MIN Hemoglobin A1c 6.5 % 6.5 % Digoxin Level 0.5 NG/ML Urine Color YELLOW Urine Turbidity HAZY Urine pH 5.0 Urine Specific [place] 1.030 Urine Protein TRACE mg/dL Urine Glucose (UA) NEG mg/dL Urine Ketones NEG mg/dL Urine Occult Blood NEG Urine Nitrite NEG Urine Bilirubin NEG Urine Urobilinogen 2.0 MG/DL Urine Leukocyte Esterase LARGE Urine WBC 5 /hpf Urine Squamous Epithelial Cells 8 /hpf Urine Transitional Epithelial Cells <1 /hpf Urine Hyaline Casts 3 /lpf Urine Mucus FEW /lpf Microscopic Urinalysis Comment CATH-CULT NOT IND Total Protein 6.5 GM/DL Albumin 3.1 GM/DL Phosphorus Level 2.4 MG/DL Magnesium Level 2.0 MG/DL Alkaline Phosphatase 101 U/L Aspartate Amino Transf (AST/SGOT) 12 U/L Alanine Aminotransferase (ALT/SGPT) 10 U/L Total Bilirubin 0.4 MG/DL Triglycerides Level 133 MG/DL Cholesterol Level 132 MG/DL LDL Cholesterol 76 MG/DL HDL Cholesterol 29.6 MG/DL Cholesterol/HDL Ratio 4.45 RATIO Free Thyroxine 1.27 NG/DL Thyroid Stimulating Hormone 3rd Gen 1.260 uIU/ML Test 02/10/17 18:38 02/11/17 02:25 02/11/17 11:02 02/11/17 17:14 Activated Partial Thromboplast Time 26.3 SEC 33.8 SEC 41.0 SEC 31.1 SEC White Blood Count 12.4 TH/MM3 Red Blood Count 3.46 MIL/MM3 Hemoglobin 10.7 GM/DL Hematocrit 32.2 % Mean Corpuscular Volume 93.1 FL Mean Corpuscular Hemoglobin 30.9 PG Mean Corpuscular Hemoglobin Concent 33.2 % Red Cell Distribution Width 14.8 % Platelet Count 277 TH/MM3 Mean Platelet Volume 9.1 FL Neutrophils (%) (Auto) 72.7 % Lymphocytes (%) (Auto) 18.8 % Monocytes (%) (Auto) 6.0 % Eosinophils (%) (Auto) 2.3 % Basophils (%) (Auto) 0.2 % Neutrophils # (Auto) 9.0 TH/MM3 Lymphocytes # (Auto) 2.3 TH/MM3 Monocytes # (Auto) 0.7 TH/MM3 Eosinophils # (Auto) 0.3 TH/MM3 Basophils # (Auto) 0.0 TH/MM3 CBC Comment DIFF FINAL Differential Comment Prothrombin Time 11.1 SEC Prothromb Time International Ratio 1.0 RATIO Blood Urea Nitrogen 20 MG/DL Creatinine 1.15 MG/DL Random Glucose 122 MG/DL Total Protein 6.5 GM/DL Albumin 3.0 GM/DL Calcium Level 8.4 MG/DL Phosphorus Level 2.5 MG/DL Magnesium Level 2.0 MG/DL Alkaline Phosphatase 102 U/L Aspartate Amino Transf (AST/SGOT) 14 U/L Alanine Aminotransferase (ALT/SGPT) 10 U/L Total Bilirubin 0.3 MG/DL Sodium Level 140 MEQ/L Potassium Level 3.6 MEQ/L Chloride Level 103 MEQ/L Carbon Dioxide Level 26.8 MEQ/L Anion Gap 10 MEQ/L Estimat Glomerular Filtration Rate 45 ML/MIN Test 02/12/17 01:11 02/12/17 07:00 White Blood Count 13.3 TH/MM3 Red Blood Count 3.29 MIL/MM3 Hemoglobin 9.8 GM/DL Hematocrit 30.6 % Mean Corpuscular Volume 93.0 FL Mean Corpuscular Hemoglobin 29.9 PG Mean Corpuscular Hemoglobin Concent 32.2 % Red Cell Distribution Width 14.9 % Platelet Count 279 TH/MM3 Mean Platelet Volume 8.2 FL Neutrophils (%) (Auto) 71.1 % Lymphocytes (%) (Auto) 19.0 % Monocytes (%) (Auto) 6.0 % Eosinophils (%) (Auto) 3.5 % Basophils (%) (Auto) 0.4 % Neutrophils # (Auto) 9.5 TH/MM3 Lymphocytes # (Auto) 2.5 TH/MM3 Monocytes # (Auto) 0.8 TH/MM3 Eosinophils # (Auto) 0.5 TH/MM3 Basophils # (Auto) 0.1 TH/MM3 CBC Comment DIFF FINAL Differential Comment Prothrombin Time 11.7 SEC Prothromb Time International Ratio 1.1 RATIO Activated Partial Thromboplast Time 40.7 SEC 51.6 SEC Blood Urea Nitrogen 12 MG/DL Creatinine 0.85 MG/DL Random Glucose 115 MG/DL Total Protein 6.1 GM/DL Albumin 2.7 GM/DL Calcium Level 7.9 MG/DL Phosphorus Level 2.7 MG/DL Magnesium Level 2.0 MG/DL Alkaline Phosphatase 85 U/L Aspartate Amino Transf (AST/SGOT) 16 U/L Alanine Aminotransferase (ALT/SGPT) 9 U/L Total Bilirubin 0.3 MG/DL Sodium Level 142 MEQ/L Potassium Level 3.6 MEQ/L Chloride Level 106 MEQ/L Carbon Dioxide Level 27.9 MEQ/L Anion Gap 8 MEQ/L Estimat Glomerular Filtration Rate 64 ML/MIN Imaging Last Impressions Head CT 02/09/17 1624 Signed Impressions: Service Date/Time: Thursday, February 09, 2017 16:50 - CONCLUSION: Stable appearance with small vessel ischemic change. Raghavendra Joseph MD Head Magnetic Resonance Angiography 02/09/17 0000 Signed Impressions: Service Date/Time: Thursday, February 09, 2017 20:22 - CONCLUSION: Intracranial arteries are within normal limits. Isidro Robison MD Carotid Artery Ultrasound 02/09/17 0000 Signed Impressions: Service Date/Time: Thursday, February 09, 2017 19:29 - CONCLUSION: Tortuous carotid systems bilaterally. No significant plaque or narrowing. Isidro Robison MD Brain MRI 02/09/17 0000 Signed Impressions: Service Date/Time: Thursday, February 09, 2017 20:22 - CONCLUSION: 1. Subcentimeter acute or subacute periventricular white matter infarct posteriorly in the right frontal lobe. 2. Mild to moderate chronic white matter ischemic changes. Isidro Robison MD Objective Remarks GENERAL: Well-nourished, well-developed female patient, in no apparent distress. SKIN: No rashes, ecchymoses or lesions. Warm and dry. HEAD: Atraumatic. Normocephalic. Pupils equal round and reactive. Extraocular motions intact. No scleral icterus. No injection or drainage. Nose without bleeding. Uvula midline. Airway patent. Tongue is abnormal on the left side chronically for 50+ years she states NECK: Trachea midline. No JVD. Supple. CARDIOVASCULAR: Irregularly irregular rhythm. S1-S2 no S3 or S4 no heave or thrill or rub or gallop RESPIRATORY: Clear to auscultation. Breath sounds equal bilaterally. No wheezes , rales, or rhonchi. GASTROINTESTINAL: Abdomen soft, non-tender, nondistended. No guarding. MUSCULOSKELETAL: Extremities without clubbing, cyanosis, or edema. No joint tenderness, effusion, or edema noted. EXTREMITIES: Left upper and lower extremity weakness noted, left upper arm 3/5, left lower leg 4/5. LEFT HAND 0/5 Right side muscle strength is 5 out of 5 in upper extremity and lower extremity NEUROLOGICAL: Awake and alert. Cranial nerves II through XII intact. Motor and sensory grossly within normal limits Normal speech. Insight and judgment is poor mood and behavior is somewhat appropriate Procedures ECHO Indication: CVA/TIA CONCLUSIONS Normal left ventricular size. Wall thickness is normal. The left ventricular systolic function is normal with an estimated ejection fraction in the range of 55-60%. The left atrial size is upper limits of normal. Trace mitral valve regurgitation. Mild aortic valve regurgitation. There is mild to moderate tricuspid valve regurgitation. There is estimated mild pulmonary hypertension present (42 mmHg). Trivial pulmonary valve regurgitation. Medications and IVs Current Medications Sodium Chloride (NS Flush) 2 ml UNSCH PRN IVF FLUSH AFTER USING IV ACCESS; Start 02/09/17 at 16:30; Stop 02/09/17 at 19:29; Status DC IV Flush (NS Flush) 2 ml BID IV FLUSH Last administered on 02/11/17 09:35; Start 02/09/17 at 21:00 IV Flush (NS Flush) 2 ml UNSCH PRN IV FLUSH FLUSH AFTER USING IV ACCESS; Start 02/09/17 at 19:00 Insulin Aspart (NovoLOG SUPPLEMENTAL SCALE) 1 ACHS SQ ; Start 02/09/17 at 21:00 ; Stop 02/12/17 at 14:49; Status DC Dextrose (D50w (Vial) Inj) 50 ml UNSCH PRN IV PUSH HYPOGLYCEMIA-SEE COMMENTS; Start 02/09/17 at 19:00; Stop 02/12/17 at 14:49; Status DC Glucagon (Glucagon Inj) 1 mg UNSCH PRN OTHER HYPOGLYCEMIA-SEE COMMENTS; Start 02/09/17 at 19:00; Stop 02/12/17 at 14:49; Status DC Sodium Chloride 1,000 ml @ 42 mls/hr [id number] IV Last administered on 19:55; Start 02/09/17 at 18:55; Stop 02/10/17 at 08:39; Status DC Acetaminophen (Tylenol) 650 mg Q4H PRN PO TEMP > 100.4; Start 02/09/17 at 19:00 Ondansetron HCl (Zofran Inj) 4 mg Q6H PRN IVP NAUSEA OR VOMITING; Start at 19:00 Senna/Docusate Sodium (Dianne-Colace) 1 tab BID PO Last administered on 22:23; Start 02/09/17 at 21:00 Magnesium Hydroxide (Milk Of Magnesia Liq) 30 ml Q12H PRN PO MILD - MODERATE CONSTIPATION; Start 02/09/17 at 19:00 Aspirin (Aspirin) 325 mg DAILY PO ; Start 02/10/17 at 09:00; Stop 02/10/17 at 09 :00; Status DC Atorvastatin Calcium (Lipitor) 20 mg HS PO Last administered on 02/11/17 22:23 ; Start 02/09/17 at 21:00 Levothyroxine Sodium (Synthroid) 100 mcg DAILY@06 PO Last administered on 05:47; Start 02/10/17 at 06:00 Pantoprazole Sodium (Protonix) 20 mg DAILY PO Last administered on 02/12/17 09 :50; Start 02/10/17 at 09:00 Ceftriaxone Sodium 1000 mg/ Sodium Chloride 100 ml @ 200 mls/hr Q24H IV Last administered on 02/11/17 22:24; Start 02/09/17 at 20:00 Lorazepam (Ativan Inj) 1 mg ONCE ONCE IV PUSH Last administered on 02/09/17 20:17; Start 02/09/17 at 20:00; Stop 02/09/17 at 20:02; Status DC Warfarin Sodium (Coumadin) 5 mg DAILY@1600 PO Last administered on 02/11/17 16 :00; Start 02/10/17 at 16:00; Stop 02/11/17 at 16:09; Status DC Heparin Sodium/ Dextrose 250 ml @ 0 mls/hr TITRATE IV Last administered on 02/11 14:37; Start 02/10/17 at 08:30 Sodium Chloride 1,000 ml @ 75 mls/hr [id number] IV Last administered on t 14:34; Start 02/10/17 at 09:00 Warfarin Sodium (Coumadin) 10 mg DAILY@1600 PO ; Start 02/12/17 at 16:00 A/P Problem List: (1) Hypertension ICD Code: I10 - Essential (primary) hypertension Status: Acute (2) GERD (gastroesophageal reflux disease) ICD Code: K21.9 - Gastro-esophageal reflux disease without esophagitis Status: Acute (3) Hyperlipidemia ICD Code: E78.5 - Hyperlipidemia, unspecified Status: Acute (4) UTI (urinary tract infection) ICD Code: N39.0 - Urinary tract infection, site not specified Status: Acute (5) Atrial fibrillation ICD Code: I48.91 - Unspecified atrial fibrillation Status: Acute (6) CVA (cerebral vascular accident) ICD Code: I63.9 - Cerebral infarction, unspecified Status: Acute (7) Atypical chest pain ICD Code: R07.89 - Atypical chest pain Status: Acute Assessment and Plan Ms. Parkinson 81-year-old [place] patient with a known medical history of dyslipidemia, hypertension, and atrial fibrillation who presented to the ED with left sided weakness. Precipitating symptoms related to this event this morning includes general left lower extremity weakness 2 days ago which eventually resolved and dizziness upon awakening this morning. Denies any previous similar symptoms. Denies any history of TIA/CVA. Patient is independent , lives alone and able to perform all ADLs and IADLs prior to hospitalization. On presentation WBC 13, afebrile, Head CT performed, EKG showing controlled atrial fibrillation, UA positive for leukocyte esterase. Left upper and lower extremity sided weakness suspect secondary to POSITIVE CVA - Head CT done showing stable appearance with small vessel ischemic changes. - Neurology consulted, appreciate input and further recommendations. - Will order MRI/MRA of brain. US of bilateral carotids ordered. Follow. MRI IS POSITIVE FOR CVA - LOAD COUMADIN - Continue neuro checks. Continue NIH scale for now. ECHO reviewed Acute on chronic kidney injury with stage 3 kidney disease - Creatinine upon presentation 1.35. Unknown baseline. - Slowly hydrate patient, NS at 42 ml/hr. - Monitor intake and output closely. Leukocytosis, mild suspect secondary to stress reaction: WBC 13.0. Afebrile. Monitor fever. Repeat CBC in am, follow. Chronic atrial fibrillation: Controlled rate. Continue home Cardizem. Continue cardiac telemetry. Monitor closely. Continue home aspirin. ADD COUMADIN AND LOAD WITH HEPARIN BRIDGE Hypertension, chronic: Relatively controlled. Will allow permissive hypertension for now. Monitor closely. Dyslipidemia: Continue home atorvastatin. Hypothyroidism: Continue home levothyroxine. DVT prophylaxis: SCDs/TEDs/Aspirin for now. DYSURIA RULE OUT UTI UTI ON ROCEPHIN Load Coumadin with heparin bridge 10MG PO DAILY MAY NEED TO INCREASE IF NO BUMP IN INR TOMORROW PT OT and speech therapy regarding cognitive as well as swelling Problem Qualifiers (1) CVA (cerebral vascular accident): Dat Kenney DO Feb 12, 2017 15:36
[2017-02-12] MEDS ORDERED: NON-FORMULARY DRUG (Losartan-Hydrochlorothiazide 1 TAB) PO SCH (15:45)
[2017-02-12] MEDS ORDERED: NON-FORMULARY DRUG (Omega-3 Fatty Acids (Omega 3 1000 mg) 1,000 MG) PO SCH (15:45)
[2017-02-12] MEDS ORDERED: WARFARIN SOD 5 MG TAB PO SCH (16:00)
[2017-02-12] MEDS: ESCITALOPRAM OXALATE 10 MG TAB PO SCH (17:23)
[2017-02-12] MEDS: POTASSIUM CHLORIDE 10 MEQ CONTROLLED RELEASE TAB PO SCH (17:23)
[2017-02-12] MEDS: DIGOXIN 0.125 MG TAB PO SCH (17:24)
[2017-02-12] MEDS: HEPARIN-D5W 25,000 U/250 ML 250 ML IV SCH (17:34)
[2017-02-12] MEDS: ATORVASTATIN 20 MG TAB PO SCH (22:35)
[2017-02-12] MEDS: cefTRIAXone INJ 1,000 MG in SODIUM CHLORIDE 0.9% INJ 100 ML IV SCH (22:37)
[2017-02-13] VITALS (8 sets, daily range): BP systolic 122–150; BP diastolic 48–81; PULSE 62–84; RESP 16–18; TEMP 97–98.9; O2SAT 93–100
[2017-02-13] MEDS: LEVOTHYROXINE SODIUM 100 MCG TAB PO SCH (05:29)
--- NOTE | 2017-02-13 06:59 | HHI.PR ---
Subjective Remarks sr Objective Vital Signs Date Time Temp Pulse Resp B/P (MAP) Pulse Ox O2 Delivery O2 Flow Rate FiO2 02/13/17 00:00 97.6 81 18 122/58 (79) 94 02/12/17 20:00 83 02/12/17 20:00 98.4 67 18 115/67 (83) 94 02/12/17 19:56 61 02/12/17 16:00 97.5 94 20 150/75 (100) 95 02/12/17 12:00 97.9 56 18 128/72 (90) 95 02/12/17 08:00 98.1 60 18 146/75 (98) 93 I/O 02/12/17 02/12/17 02/12/17 02/13/17 02/13/17 02/13/17 07:00 15:00 23:00 07:00 15:00 23:00 Intake Total 520 ml 1520 ml Balance 520 ml 1520 ml Intake Oral 520 ml IV Total 1520 ml # Voids 6 10 # Bowel Movements 5 Result Diagram: 02/12/1711002/12/171 Objective Remarks now 0/5 r hand still x 1 /5 pinky move lue ow better lle nl moves tricep and bicep well Assessment and Plan Assessment and Plan imp inr pend on coumadin hct DROPPING DEFER TO MED TEAM ok oob stable overnoc echo neg she could go to rehap on iv heparin and have them finish off coumadin therei with daily inr? ic hct stable here? no bleeding acc to pt Hipolito Stephens MD Feb 13, 2017 06:59
[2017-02-13] MEDS: DOCUSATE SODIUM 50 MG/SENNA 8.6 MG TAB PO SCH ×2 (09:00→22:07)
[2017-02-13] MEDS: SODIUM CHLORIDE 0.9% FLUSH 5 ML FLUSH IV FLUSH SCH ×2 (09:00→22:01)
[2017-02-13] MEDS: LOSARTAN 50 MG TAB PO SCH (09:41)
[2017-02-13] MEDS: HYDROCHLOROTHIAZIDE 12.5 MG CAP PO SCH (09:43)
[2017-02-13] MEDS: POTASSIUM CHLORIDE 10 MEQ CONTROLLED RELEASE TAB PO SCH (09:43)
[2017-02-13] MEDS: PANTOPRAZOLE SOD 20 MG DELAYED RELEASE TAB PO SCH (09:44)
[2017-02-13] MEDS: DIGOXIN 0.125 MG TAB PO SCH (09:44)
[2017-02-13] MEDS: ESCITALOPRAM OXALATE 10 MG TAB PO SCH (09:44)
[2017-02-13 11:08] LABS: BASOPHIL # 0.1 TH/MM3 (0-0.2); BASOPHIL % 0.5 % (0.0-2.0); EOSINOPHIL # 0.4 TH/MM3 (0-0.4); EOSINOPHIL % 3.8 % (0.0-4.0); HEMATOCRIT 34.1 % (35.0-46.0); HEMO FLAGS DIFF FINAL; LYMPH % 21.3 % (9.0-44.0); LYMPHOCYTE # 2.5 TH/MM3 (1.0-4.8); MEAN CELL VOLUME 93.1 FL (80.0-100.0); MEAN CORPUSCULAR HEMOGLOBIN 30.4 PG (27.0-34.0); MEAN CORPUSCULAR HGB CONC 32.7 % (32.0-36.0); MONO % 5.4 % (0.0-8.0); PLATELET COUNT 301 TH/MM3 (150-450); RED BLOOD COUNT 3.67 MIL/MM3 (4.00-5.30); RED CELL DISTRIBUTION WIDTH 15.3 % (11.6-17.2); WHITE BLOOD COUNT 11.6 TH/MM3 (4.0-11.0)
[2017-02-13 11:22] LABS: INTERNATIONAL NORMALIZED RATIO 1.6 RATIO; PROTHROMBIN TIME - PATIENT 17.7 SEC (9.8-11.6)
[2017-02-13 11:26] LABS: ALT (GPT) 11 U/L (10-53); ANION GAP 8 MEQ/L (5-15); AST (GOT) 19 U/L (15-37); BICARBONATE 27.5 MEQ/L (21.0-32.0); BLOOD UREA NITROGEN 9 MG/DL (7-18); CHLORIDE 105 MEQ/L (98-107); GLOMERULAR FILTRATION RATE 66 ML/MIN (>89); MAGNESIUM 2.1 MG/DL (1.5-2.5); POTASSIUM 3.6 MEQ/L (3.5-5.1); SODIUM (NA) 140 MEQ/L (136-145)
[2017-02-13 11:29] LABS: ALKALINE PHOSPHATASE 90 U/L (45-117); TOTAL BILIRUBIN ADULT 0.2 MG/DL (0.2-1.0)
--- NOTE | 2017-02-13 13:32 | HHI.PR ---
Subjective Remarks She is having diarrhea today. She could not elaborate. Discussed with RN who was concerned about C-diff. Patient states the last time she had antibiotics was about a month ago. Family is planning to take the patient back to [place]. Objective Vitals Vital Signs Date Time Temp Pulse Resp B/P (MAP) Pulse Ox O2 Delivery O2 Flow Rate FiO2 02/13/17 08:00 97.6 69 16 143/81 (101) 96 02/13/17 04:00 97.2 78 18 126/62 (83) 93 02/13/17 00:00 97.6 81 18 122/58 (79) 94 02/12/17 20:00 83 02/12/17 20:00 98.4 67 18 115/67 (83) 94 02/12/17 19:56 61 02/12/17 16:00 97.5 94 20 150/75 (100) 95 I/O 02/12/17 02/12/17 02/12/17 02/13/17 02/13/17 02/13/17 07:00 15:00 23:00 07:00 15:00 23:00 Intake Total 520 ml 1520 ml Balance 520 ml 1520 ml Intake Oral 520 ml IV Total 1520 ml # Voids 6 10 # Bowel Movements 5 Result Diagram: 02/13/17 0840 02/13/17 0840 Objective Remarks GENERAL: This is a well-nourished, well-developed patient, in no apparent distress. CARDIOVASCULAR: Normal rate and regular rhythm without murmurs, gallops, or rubs. RESPIRATORY: Good respiratory efforts. Breath sounds equal and clear to auscultation bilaterally. GASTROINTESTINAL: Abdomen soft, non-tender, non-distended. Normal active bowel sounds MUSCULOSKELETAL: Extremities without cyanosis, or edema. NEURO: Alert & Oriented Left upper and lower extremity weakness noted, left upper arm 3/5, left lower leg 4/5. LEFT HAND 0/5 Right side muscle strength. 5 out of 5 right upper and lower extremities. Patient is oriented times to person , place, time, situation. Moves all ext x4 PSYCH: Appropriate mood and affect. Procedures ECHO Indication: CVA/TIA CONCLUSIONS Normal left ventricular size. Wall thickness is normal. The left ventricular systolic function is normal with an estimated ejection fraction in the range of 55-60%. The left atrial size is upper limits of normal. Trace mitral valve regurgitation. Mild aortic valve regurgitation. There is mild to moderate tricuspid valve regurgitation. There is estimated mild pulmonary hypertension present (42 mmHg). Trivial pulmonary valve regurgitation. A/P Problem List: (1) Hypertension ICD Code: I10 - Essential (primary) hypertension Status: Acute (2) GERD (gastroesophageal reflux disease) ICD Code: K21.9 - Gastro-esophageal reflux disease without esophagitis Status: Acute (3) Hyperlipidemia ICD Code: E78.5 - Hyperlipidemia, unspecified Status: Acute (4) UTI (urinary tract infection) ICD Code: N39.0 - Urinary tract infection, site not specified Status: Acute (5) Atrial fibrillation ICD Code: I48.91 - Unspecified atrial fibrillation Status: Acute (6) CVA (cerebral vascular accident) ICD Code: I63.9 - Cerebral infarction, unspecified Status: Acute (7) Atypical chest pain ICD Code: R07.89 - Atypical chest pain Status: Acute Assessment and Plan 81-year-old Female patient with a known medical history of dyslipidemia, hypertension, and atrial fibrillation who presented to the ED with left sided weakness. Associated symptoms includes general left lower extremity weakness 2 days ago which eventually resolved and dizziness upon awakening. Left upper and lower extremity sided weakness secondary to CVA. - Head CT done showing stable appearance with small vessel ischemic changes. - Neurology following, patient started on heparin drip bridging to Coumadin. - Continue neuro checks. Echocardiogram results noted. Acute on chronic kidney injury with stage 3 kidney disease - Creatinine upon presentation 1.35. Unknown baseline. - Renal functions much improved. - Monitor intake and output closely. Diarrhea: Obtain C-Diff Chronic atrial fibrillation: Controlled rate. Continue home Cardizem. Continue cardiac telemetry. Monitor closely. Continue home aspirin. - Coumadin added. Hypertension, chronic: Relatively controlled. Monitor closely. Dyslipidemia: Continue home atorvastatin. Hypothyroidism: Continue home levothyroxine. DVT prophylaxis: SCDs/TEDs/Aspirin for now. Continue rehabilitation efforts with PT/OT. Family wants to take patient back to [place]. Discharge Planning Discussed with RN. Problem Qualifiers (1) CVA (cerebral vascular accident): Steffanie Gordon MD Feb 13, 2017 13:32
[2017-02-13] MEDS ORDERED: WARFARIN SOD 5 MG TAB PO SCH (16:00)
[2017-02-13 17:57] LABS: C. DIFF EPI 027 PRESUMPTIVE NEGATIVE (NEGATIVE)
[2017-02-13] MEDS: HEPARIN-D5W 25,000 U/250 ML 250 ML IV SCH (18:43)
[2017-02-13] MEDS: ATORVASTATIN 20 MG TAB PO SCH (22:07)
[2017-02-14] VITALS (7 sets, daily range): BP systolic 138–155; BP diastolic 69–87; PULSE 66–80; RESP 17–20; TEMP 97.4–98.2; O2SAT 90–95
[2017-02-14 02:18] LABS: APTT (PATIENT) 67.9 SEC (24.3-30.1); INTERNATIONAL NORMALIZED RATIO 2.5 RATIO; PROTHROMBIN TIME - PATIENT 29.2 SEC (9.8-11.6)
[2017-02-14] MEDS: LEVOTHYROXINE SODIUM 100 MCG TAB PO SCH (05:33)
--- NOTE | 2017-02-14 07:07 | HHI.PR ---
Objective Vital Signs Date Time Temp Pulse Resp B/P (MAP) Pulse Ox O2 Delivery O2 Flow Rate FiO2 02/14/17 04:00 97.4 68 18 138/69 (92) 95 02/13/17 21:00 71 02/13/17 21:00 98.9 65 18 150/48 (82) 100 02/13/17 20:00 98.6 62 18 148/68 (94) 100 02/13/17 20:00 98.6 62 18 148/68 (94) 100 02/13/17 18:04 80 02/13/17 16:00 98.3 67 16 130/67 (88) 95 02/13/17 12:00 97.0 84 16 131/74 (93) 95 02/13/17 08:00 97.6 69 16 143/81 (101) 96 I/O 02/13/17 02/13/17 02/13/17 02/14/17 02/14/17 02/14/17 07:00 15:00 23:00 07:00 15:00 23:00 Intake Total 720 ml 237 ml Balance 720 ml 237 ml Intake Oral 720 ml IV Total 237 ml # Voids 3 1 # Bowel Movements 2 8 Result Diagram: 02/13/17 0840 02/13/17 0840 Objective Remarks 3 /5 pinky move lue better every day lle nl moves tricep and bicep well vff voice nl Assessment and Plan Assessment and Plan imp inr on coumadin hct stable ok oob echo neg ok dc to rehab i put her in for 2 mg coumadin today so she does not overshoot inr will need daily inr in rehab fu my office 2 months ready for rehab i will sign off Hipolito Stephnes MD Feb 14, 2017 07:07
[2017-02-14] MEDS: SODIUM CHLORIDE 0.9% FLUSH 5 ML FLUSH IV FLUSH SCH ×2 (09:00→20:22)
[2017-02-14] MEDS: HYDROCHLOROTHIAZIDE 12.5 MG CAP PO SCH (09:00)
[2017-02-14] MEDS: PANTOPRAZOLE SOD 20 MG DELAYED RELEASE TAB PO SCH (09:00)
[2017-02-14] MEDS: DOCUSATE SODIUM 50 MG/SENNA 8.6 MG TAB PO SCH ×2 (09:00→20:21)
[2017-02-14] MEDS: LOSARTAN 50 MG TAB PO SCH (09:01)
[2017-02-14] MEDS: DIGOXIN 0.125 MG TAB PO SCH (09:01)
[2017-02-14] MEDS: POTASSIUM CHLORIDE 10 MEQ CONTROLLED RELEASE TAB PO SCH (09:02)
[2017-02-14] MEDS: ESCITALOPRAM OXALATE 10 MG TAB PO SCH (09:02)
[2017-02-14 10:42] LABS: INTERNATIONAL NORMALIZED RATIO 2.5 RATIO; PROTHROMBIN TIME - PATIENT 28.9 SEC (9.8-11.6)
[2017-02-14] MEDS ORDERED: WARF-20 PO (11:38)
--- NOTE | 2017-02-14 11:45 | HHI.DS ---
Discharge Summary Admission Date Feb 09, 2017 at 18:40 Discharge Date: Feb 14, 2017 Admitting Diagnosis (1) Hypertension ICD Code: I10 - Essential (primary) hypertension Status: Acute (2) GERD (gastroesophageal reflux disease) ICD Code: K21.9 - Gastro-esophageal reflux disease without esophagitis Status: Acute (3) Hyperlipidemia ICD Code: E78.5 - Hyperlipidemia, unspecified Status: Acute (4) UTI (urinary tract infection) ICD Code: N39.0 - Urinary tract infection, site not specified Status: Acute (5) Atrial fibrillation ICD Code: I48.91 - Unspecified atrial fibrillation Status: Acute (6) CVA (cerebral vascular accident) ICD Code: I63.9 - Cerebral infarction, unspecified Status: Acute (7) Atypical chest pain ICD Code: R07.89 - Atypical chest pain Status: Acute Procedures ECHO Indication: CVA/TIA CONCLUSIONS Normal left ventricular size. Wall thickness is normal. The left ventricular systolic function is normal with an estimated ejection fraction in the range of 55-60%. The left atrial size is upper limits of normal. Trace mitral valve regurgitation. Mild aortic valve regurgitation. There is mild to moderate tricuspid valve regurgitation. There is estimated mild pulmonary hypertension present (42 mmHg). Trivial pulmonary valve regurgitation. Brief History - From Admission History of present illness from the admitting physician Ms. Parkinson 81-year-old Female patient with a known medical history of dyslipidemia, hypertension, and atrial fibrillation who presented to the ED with left sided weakness. Patient seen and examined in ED with daughter at bedside. Per daughter, patient was in [place] this am before boarding the plane became very weak, unable to walk and complaint of left upper and lower extremity weakness. She was placed in a wheelchair and boarded the plane despite these symptoms. Upon arriving in [facility] her daughter recognized these symptoms and immediately drove her here to the ED. Precipitating symptoms related to this event this morning includes general left lower extremity weakness 2 days ago which eventually resolved and dizziness upon awakening this morning. Denies any previous similar symptoms. Denies any history of TIA/CVA. Denies any associated symptoms including fever, chills, cough, dysphagia, lightheadedness, headache, nausea, slurred speech, confusion, diplopia or any vision changes. Patient did state that she took all of her medications this morning including her Aspirin 325 mg. It is important to note patient has been treated for UTI by her PCP within the last month and PO antibiotics. States she is still having some dysuria. CBC/BMP: 02/13/17 0840 02/13/17 0840 Significant Findings Laboratory Tests Test 02/11/17 17:14 02/12/17 01:11 02/12/17 07:00 02/13/17 08:40 Activated Partial Thromboplast Time 31.1 SEC (24.3-30.1) 40.7 SEC (24.3-30.1) 51.6 SEC (24.3-30.1) 31.0 SEC (24.3-30.1) White Blood Count 13.3 TH/MM3 (4.0-11.0) 11.6 TH/MM3 (4.0-11.0) Red Blood Count 3.29 MIL/MM3 (4.00-5.30) 3.67 MIL/MM3 (4.00-5.30) Hemoglobin 9.8 GM/DL (11.6-15.3) 11.2 GM/DL (11.6-15.3) Hematocrit 30.6 % (35.0-46.0) 34.1 % (35.0-46.0) Neutrophils (%) (Auto) 71.1 % (16.0-70.0) Neutrophils # (Auto) 9.5 TH/MM3 (1.8-7.7) 8.0 TH/MM3 (1.8-7.7) Eosinophils # (Auto) 0.5 TH/MM3 (0-0.4) Prothrombin Time 11.7 SEC (9.8-11.6) 17.7 SEC (9.8-11.6) Random Glucose 115 MG/DL (74-106) Total Protein 6.1 GM/DL (6.4-8.2) Albumin 2.7 GM/DL (3.4-5.0) 2.9 GM/DL (3.4-5.0) Calcium Level 7.9 MG/DL (8.5-10.1) 8.4 MG/DL (8.5-10.1) Alanine Aminotransferase (ALT/SGPT) 9 U/L (10-53) Estimat Glomerular Filtration Rate 64 ML/MIN (>89) 66 ML/MIN (>89) Test 02/13/17 13:30 02/13/17 17:55 02/14/17 01:30 02/14/17 09:28 Activated Partial Thromboplast Time 63.0 SEC (24.3-30.1) 67.9 SEC (24.3-30.1) Prothrombin Time 29.2 SEC (9.8-11.6) 28.9 SEC (9.8-11.6) Imaging Last Impressions Head CT 02/09/17 1624 Signed Impressions: Service Date/Time: Thursday, February 09, 2017 16:50 - CONCLUSION: Stable appearance with small vessel ischemic change. Raghavendra Joseph MD Head Magnetic Resonance Angiography 02/09/17 0000 Signed Impressions: Service Date/Time: Thursday, February 09, 2017 20:22 - CONCLUSION: Intracranial arteries are within normal limits. Isidro Robison MD Carotid Artery Ultrasound 02/09/17 0000 Signed Impressions: Service Date/Time: Thursday, February 09, 2017 19:29 - CONCLUSION: Tortuous carotid systems bilaterally. No significant plaque or narrowing. Isidro Robisno MD Brain MRI 02/09/17 0000 Signed Impressions: Service Date/Time: Thursday, February 09, 2017 20:22 - CONCLUSION: 1. Subcentimeter acute or subacute periventricular white matter infarct posteriorly in the right frontal lobe. 2. Mild to moderate chronic white matter ischemic changes. Isidro Robison MD PE at Discharge GENERAL: This is a well-nourished, well-developed patient, in no apparent distress. CARDIOVASCULAR: Normal rate and regular rhythm without murmurs, gallops, or rubs. RESPIRATORY: Good respiratory efforts. Breath sounds equal and clear to auscultation bilaterally. GASTROINTESTINAL: Abdomen soft, non-tender, non-distended. Normal active bowel sounds MUSCULOSKELETAL: Extremities without cyanosis, or edema. NEURO: Alert & Oriented Left upper and lower extremity weakness noted, left upper arm 3/5, left lower leg 4/5. LEFT HAND 0/5 Right side muscle strength. 5 out of 5 right upper and lower extremities. Patient is oriented times to person , place, time, situation. Moves all ext x4 PSYCH: Appropriate mood and affect. Pt update on day of discharge Patient reports she is feeling okay today. She is gaining some strength on the left hand. INR therapeutic today. Hospital Course 81-year-old Female patient with a known medical history of dyslipidemia, hypertension, and atrial fibrillation who presented to the ED with left sided weakness. Associated symptoms includes general left lower extremity weakness 2 days ago which eventually resolved and dizziness upon awakening. The patient was found to have a CVA. Evaluation and treatment course detailed below: Left upper and lower extremity sided weakness secondary to CVA. - Head CT done showing stable appearance with small vessel ischemic changes. - Neurology followed the patient. She was started on a heparin drip and bridged to Coumadin. She started to have slight improvement in her symptoms. She is to continue rehabilitation efforts at inpatient rehabilitation. Patient to have INR monitoring in rehab and Coumadin titration as indicated. Follow-up with neurology in 2 months. - Family eventually wants the patient to return home to [place]. Acute on chronic kidney injury with stage 3 kidney disease - Creatinine upon presentation 1.35. Unknown baseline. Renal functions normalized Chronic atrial fibrillation: Controlled rate. Continue home Cardizem. Continue cardiac telemetry. Monitor closely. Patient started on Coumadin as above. Hypertension, chronic: Relatively controlled during this hospitalization. Dyslipidemia: Continue home atorvastatin. Hypothyroidism: Continue home levothyroxine. Pt Condition on Discharge: Stable Discharge Disposition: Rehab Inpatient Discharge Time: > 30 minutes Discharge Instructions DIET: Follow Instructions for: Heart Healthy Diet Speech Therapy-Diet Recommends: Regular Activities you can perform: Regular-No Restrictions Follow up Referrals: Neurology - 2 Months New Medications: Warfarin (Warfarin) 4 Mg Tab 4 MG PO DAILY for Blood Clot Prevention, #30 TAB 0 Refills Continued Medications: Atorvastatin (Atorvastatin) 20 Mg Tab 20 MG PO HS for Cholesterol Management, #30 TAB 0 Refills Digoxin (Digoxin) 0.125 Mg/2.5 Ml Solution Escitalopram (Escitalopram) 10 Mg Tab 10 MG PO DAILY, #30 TAB 0 Refills Levothyroxine (Levothyroxine) 100 Mcg Tab 100 MCG PO DAILY for Thyroid, #30 TAB 0 Refills Losartan-Hydrochlorothiazide (Losartan-Hydrochlorothiazide) 50-12.5 Mg Tab 1 TAB PO DAILY for Blood Pressure Management, #30 TAB 0 Refills [place]-3 Fatty Acids ([place] 3 1000 mg) 1 Cap Cap 1000 MG PO DAILY Omeprazole (Omeprazole) 20 Mg Tab 20 MG PO DAILY, #30 TAB 0 Refills Potassium Chloride ER (Potassium Chloride ER) 20 Meq Tab 10 MEQ PO DAILY for Electrolyte Replacement, #30 TAB 0 Refills Discontinued Medications: Aspirin (Aspirin) 325 Mg Tab 325 MG PO DAILY, #30 TAB 0 Refills Baclofen (Baclofen) 10 Mg Tab 10 MG PO HS PRN for MUSCLE SPASM, TAB 0 Refills Celecoxib (Celecoxib) 100 Mg Cap 100 MG PO BID for Pain Management, CAP 0 Refills Steffanie Gordon MD Feb 14, 2017 11:45
[2017-02-14] MEDS: WARFARIN SOD 2 MG TAB PO SCH (16:26)
[2017-02-14] MEDS: ATORVASTATIN 20 MG TAB PO SCH (20:20)
[2017-02-15] VITALS: BP 133/71; PULSE 68; RESP 20; TEMP 97.2; O2SAT 93
[2017-02-15 04:00] VITALS: BP 139/83; PULSE 70; RESP 20; TEMP 98.4; O2SAT 96
[2017-02-15] MEDS: LEVOTHYROXINE SODIUM 100 MCG TAB PO SCH (06:37)
[2017-02-15 07:09] LABS: INTERNATIONAL NORMALIZED RATIO 3.1 RATIO; PROTHROMBIN TIME - PATIENT 36.1 SEC (9.8-11.6)
[2017-02-15 08:49] VITALS: BP 123/65; PULSE 67; RESP 20; TEMP 98
[2017-02-15] MEDS: POTASSIUM CHLORIDE 10 MEQ CONTROLLED RELEASE TAB PO SCH (09:15)
[2017-02-15] MEDS: DIGOXIN 0.125 MG TAB PO SCH (09:15)
[2017-02-15] MEDS: PANTOPRAZOLE SOD 20 MG DELAYED RELEASE TAB PO SCH (09:15)
[2017-02-15] MEDS: DOCUSATE SODIUM 50 MG/SENNA 8.6 MG TAB PO SCH ×2 (09:15→22:26)
[2017-02-15] MEDS: ESCITALOPRAM OXALATE 10 MG TAB PO SCH (09:15)
[2017-02-15] MEDS: LOSARTAN 50 MG TAB PO SCH (09:16)
[2017-02-15] MEDS: HYDROCHLOROTHIAZIDE 12.5 MG CAP PO SCH (09:16)
[2017-02-15] MEDS: SODIUM CHLORIDE 0.9% FLUSH 5 ML FLUSH IV FLUSH SCH ×2 (09:16→21:00)
[2017-02-15 12:44] VITALS: BP 104/59; PULSE 78; RESP 20; TEMP 95.3; O2SAT 95
--- NOTE | 2017-02-15 13:52 | HHI.PR ---
Subjective Remarks Patient discharged yesterday. Still waiting for insurance authorization for inpatient rehabilitation. She reports feeling ok, gaining more strength on the left hand. Objective Vitals Vital Signs Date Time Temp Pulse Resp B/P (MAP) Pulse Ox O2 Delivery O2 Flow Rate FiO2 02/15/17 12:44 95.3 78 20 104/59 (74) 95 02/15/17 08:49 98.0 67 20 123/65 (84) 02/15/17 04:00 98.4 70 20 139/83 (101) 96 02/15/17 00:00 97.2 68 20 133/71 (91) 93 02/14/17 21:00 75 02/14/17 20:00 98.2 66 18 155/72 (99) 02/14/17 18:32 80 02/14/17 16:00 98.2 71 18 148/69 (95) 93 I/O 02/14/17 02/14/17 02/14/17 02/15/17 02/15/17 02/15/17 06:59 14:59 22:59 06:59 14:59 22:59 # Voids 1 7 # Bowel Movements 8 0 Result Diagram: 02/13/17 0840 02/13/17 0840 Objective Remarks GENERAL: This is a well-nourished, well-developed patient, in no apparent distress. CARDIOVASCULAR: Normal rate and regular rhythm without murmurs, gallops, or rubs. RESPIRATORY: Good respiratory efforts. Breath sounds equal and clear to auscultation bilaterally. GASTROINTESTINAL: Abdomen soft, non-tender, non-distended. Normal active bowel sounds MUSCULOSKELETAL: Extremities without cyanosis, or edema. NEURO: Alert & Oriented Left upper and lower extremity weakness noted, left upper arm 3/5, left lower leg 4/5. LEFT HAND 3/5 Right side muscle strength. 5 out of 5 right upper and lower extremities. Patient is oriented times to person , place, time, situation. Moves all ext x4 PSYCH: Appropriate mood and affect. Procedures ECHO Indication: CVA/TIA CONCLUSIONS Normal left ventricular size. Wall thickness is normal. The left ventricular systolic function is normal with an estimated ejection fraction in the range of 55-60%. The left atrial size is upper limits of normal. Trace mitral valve regurgitation. Mild aortic valve regurgitation. There is mild to moderate tricuspid valve regurgitation. There is estimated mild pulmonary hypertension present (42 mmHg). Trivial pulmonary valve regurgitation. A/P Problem List: (1) Hypertension ICD Code: I10 - Essential (primary) hypertension Status: Acute (2) GERD (gastroesophageal reflux disease) ICD Code: K21.9 - Gastro-esophageal reflux disease without esophagitis Status: Acute (3) Hyperlipidemia ICD Code: E78.5 - Hyperlipidemia, unspecified Status: Acute (4) UTI (urinary tract infection) ICD Code: N39.0 - Urinary tract infection, site not specified Status: Acute (5) Atrial fibrillation ICD Code: I48.91 - Unspecified atrial fibrillation Status: Acute (6) CVA (cerebral vascular accident) ICD Code: I63.9 - Cerebral infarction, unspecified Status: Acute (7) Atypical chest pain ICD Code: R07.89 - Atypical chest pain Status: Acute Assessment and Plan 81-year-old Female patient with a known medical history of dyslipidemia, hypertension, and atrial fibrillation who presented to the ED with left sided weakness. Associated symptoms includes general left lower extremity weakness 2 days prior to admission which eventually resolved and dizziness upon awakening. Left upper and lower extremity sided weakness secondary to CVA. - Head CT done showing stable appearance with small vessel ischemic changes. - Neurology following, patient started on heparin drip bridging to Coumadin. INR therapeutic. - Echocardiogram results noted. - Patient is cleared for discharge to inpatient rehabilitation. Acute on chronic kidney injury with stage 3 kidney disease - Creatinine upon presentation 1.35. Unknown baseline. - Renal functions returned to normal range. Chronic atrial fibrillation: Controlled rate. Continue home Cardizem. Continue cardiac telemetry. On Coumadin. INR 3.1 today Hypertension, chronic: Relatively controlled. Monitor closely. Dyslipidemia: Continue home atorvastatin. Hypothyroidism: Continue home levothyroxine. DVT prophylaxis: SCDs/TEDs/Coumadin Discharge Planning Discussed with case management. Patient cleared to be discharged to inpatient rehabilitation. Awaiting insurance authorization. Problem Qualifiers (1) CVA (cerebral vascular accident): Steffanie Gordon MD Feb 15, 2017 13:52
[2017-02-15 16:21] VITALS: BP 163/79; PULSE 62; RESP 20; TEMP 98.1; O2SAT 95
[2017-02-15 20:00] VITALS: BP 145/84; PULSE 79; RESP 18; TEMP 97.8; O2SAT 96
[2017-02-15] MEDS: ATORVASTATIN 20 MG TAB PO SCH (22:26)
[2017-02-16] VITALS (7 sets, daily range): BP systolic 120–140; BP diastolic 61–77; PULSE 60–70; RESP 18–20; TEMP 97.4–98.5; O2SAT 93–96
[2017-02-16] MEDS: LEVOTHYROXINE SODIUM 100 MCG TAB PO SCH (07:06)
[2017-02-16] MEDS: SODIUM CHLORIDE 0.9% FLUSH 5 ML FLUSH IV FLUSH SCH (08:53)
[2017-02-16] MEDS: HYDROCHLOROTHIAZIDE 12.5 MG CAP PO SCH (08:53)
[2017-02-16] MEDS: ESCITALOPRAM OXALATE 10 MG TAB PO SCH (08:54)
[2017-02-16] MEDS: DIGOXIN 0.125 MG TAB PO SCH (08:54)
[2017-02-16] MEDS: LOSARTAN 50 MG TAB PO SCH (08:54)
[2017-02-16] MEDS: PANTOPRAZOLE SOD 20 MG DELAYED RELEASE TAB PO SCH (08:54)
[2017-02-16] MEDS: DOCUSATE SODIUM 50 MG/SENNA 8.6 MG TAB PO SCH (08:54)
[2017-02-16] MEDS: POTASSIUM CHLORIDE 10 MEQ CONTROLLED RELEASE TAB PO SCH (08:55)
[2017-02-16 10:04] LABS: INTERNATIONAL NORMALIZED RATIO 2.8 RATIO; PROTHROMBIN TIME - PATIENT 31.8 SEC (9.8-11.6)
--- NOTE | 2017-02-16 12:54 | HHI.PR ---
Subjective Remarks Insurance denied inpatient rehab. Patient to go to SNF. Objective Vitals Vital Signs Date Time Temp Pulse Resp B/P (MAP) Pulse Ox O2 Delivery O2 Flow Rate FiO2 02/16/17 11:53 98.4 70 20 139/65 (89) 95 02/16/17 08:23 98.2 60 20 140/70 (93) 96 02/16/17 08:05 60 02/16/17 04:00 98.5 64 20 124/61 (82) 94 02/16/17 01:59 66 02/16/17 00:00 97.4 60 18 132/75 (94) 93 02/15/17 20:00 97.8 79 18 145/84 (104) 96 02/15/17 16:21 98.1 62 20 163/79 (107) 95 I/O 02/15/17 02/15/17 02/15/17 02/16/17 02/16/17 02/16/17 06:59 14:59 22:59 06:59 14:59 22:59 Intake Total 720 ml Balance 720 ml Intake Oral 720 ml # Voids 8 1 # Bowel Movements 2 Result Diagram: 02/13/1740 02/13/17 0840 Objective Remarks GENERAL: This is a well-nourished, well-developed patient, in no apparent distress. CARDIOVASCULAR: Normal rate and regular rhythm without murmurs, gallops, or rubs. RESPIRATORY: Good respiratory efforts. Breath sounds equal and clear to auscultation bilaterally. GASTROINTESTINAL: Abdomen soft, non-tender, non-distended. Normal active bowel sounds MUSCULOSKELETAL: Extremities without cyanosis, or edema. NEURO: Alert & Oriented Left upper and lower extremity weakness noted, left upper arm 3/5, left lower leg 4/5. LEFT HAND 3/5 Right side muscle strength. 5 out of 5 right upper and lower extremities. Patient is oriented times to person , place, time, situation. Moves all ext x4 PSYCH: Appropriate mood and affect. Procedures ECHO Indication: CVA/TIA CONCLUSIONS Normal left ventricular size. Wall thickness is normal. The left ventricular systolic function is normal with an estimated ejection fraction in the range of 55-60%. The left atrial size is upper limits of normal. Trace mitral valve regurgitation. Mild aortic valve regurgitation. There is mild to moderate tricuspid valve regurgitation. There is estimated mild pulmonary hypertension present (42 mmHg). Trivial pulmonary valve regurgitation. A/P Problem List: (1) Hypertension ICD Code: I10 - Essential (primary) hypertension Status: Chronic (2) GERD (gastroesophageal reflux disease) ICD Code: K21.9 - Gastro-esophageal reflux disease without esophagitis Status: Chronic (3) Hyperlipidemia ICD Code: E78.5 - Hyperlipidemia, unspecified Status: Chronic (4) UTI (urinary tract infection) ICD Code: N39.0 - Urinary tract infection, site not specified Status: Acute (5) Atrial fibrillation ICD Code: I48.91 - Unspecified atrial fibrillation Status: Chronic (6) CVA (cerebral vascular accident) ICD Code: I63.9 - Cerebral infarction, unspecified Status: Acute (7) Atypical chest pain ICD Code: R07.89 - Atypical chest pain Status: Acute Assessment and Plan 81-year-old Female patient with a known medical history of dyslipidemia, hypertension, and atrial fibrillation who presented to the ED with left sided weakness. Associated symptoms includes general left lower extremity weakness 2 days prior to admission which eventually resolved and dizziness upon awakening. Left upper and lower extremity sided weakness secondary to CVA. - Head CT done showing stable appearance with small vessel ischemic changes. - Neurology following, patient started on heparin drip bridging to Coumadin. INR therapeutic. - Echocardiogram results noted. - Patient is cleared for discharge to SNF for rehabilitation. Acute on chronic kidney injury with stage 3 kidney disease - Creatinine upon presentation 1.35. Unknown baseline. - Renal functions returned to normal range. Chronic atrial fibrillation: Controlled rate. Continue home Cardizem. Continue cardiac telemetry. On Coumadin. INR therapeutic. DC on 4 mg daily. Hypertension, chronic: Relatively controlled. Monitor closely. Dyslipidemia: Continue home atorvastatin. Hypothyroidism: Continue home levothyroxine. DVT prophylaxis: SCDs/TEDs/Coumadin Discharge Planning DC to SNF. Problem Qualifiers (1) CVA (cerebral vascular accident): Steffanie Gordon MD Feb 16, 2017 12:53
[2017-02-16] MEDS: WARFARIN SOD 2 MG TAB PO SCH (15:03)
== END 2017-02-16 18:19 | DRG 65 ==
LOC: NEPC 15:52 → NEDA 18:40 → N05A 21:02
PROVIDERS: ADMIT Family Medicine; ATTEND Family Medicine
DX: I63.9 Cerebral infarction, unspecified (principal); N39.0 Urinary tract infection, site not specified; N17.9 Acute kidney failure, unspecified; I27.2 Other secondary pulmonary hypertension; G81.94 Hemiplegia, unspecified affecting left nondominant side; I08.3 Combined rheumatic disorders of mitral, aortic and tricuspid valves; I48.2 Chronic atrial fibrillation; N18.3 Chronic kidney disease, stage 3 (moderate); R26.2 Difficulty in walking, not elsewhere classified; M19.90 Unspecified osteoarthritis, unspecified site; Z79.82 Long term (current) use of aspirin; E78.00 Pure hypercholesterolemia, unspecified; I12.9 Hypertensive chronic kidney disease with stage 1 through stage 4 chronic kidney disease, or unspecified chronic kidney disease; H91.90 Unspecified hearing loss, unspecified ear; E03.9 Hypothyroidism, unspecified; K21.9 Gastro-esophageal reflux disease without esophagitis; K44.9 Diaphragmatic hernia without obstruction or gangrene; Z82.49 Family history of ischemic heart disease and other diseases of the circulatory system; R07.89 Other chest pain; E78.5 Hyperlipidemia, unspecified; R30.0 Dysuria; R19.7 Diarrhea, unspecified
CPT/HCPCS: 70450; 70544; 70551; 80048; 80053; 80061; 80162; 81001; 82272; 82948; 83036; 83735; 84100; 84425; 84439; 84443; 85025; 85610; 85730; 87493; 93005; 93306; 93880; J0696; J1644; J2060; J7030